=== PATIENT | male | born 1995 | race Caucasian/White ===

== ENCOUNTER 2020-09-27 10:03 | Outpatient (REF) | payer OTHER, SELFPAY ==
[2020-09-27 11:42] LABS: MANUAL DIFF FLAG NO
[2020-09-27 11:48] LABS: Basophils Percent Auto 0.5 % (0-2); Eosinophils Absolute Auto 0.1 X10*3/uL (0.0-0.4); Eosinophils Percent Auto 1.7 % (0-4); Hematocrit 43.7 % (42-52); Hemoglobin 14.8 g/dl (14.0-18.0); Lymphocytes Absolute Auto 1.6 X10*3/uL (1.2-4.9); Lymphocytes Percent Auto 39.3 % (20-40); Mean Corpuscular HGB Conc 33.9 g/dl (31.0-36.0); Mean Corpuscular Hemoglobin 31.8 pg (27.0-33.0); Mean Platelet Volume 10.2 fL (9.4-12.4); Monocytes Absolute Auto 0.4 X10*3/uL (0.1-1.2); Monocytes Percent Auto 8.5 % (2-11); Neutrophils Absolute Auto 2.1 X10*3/uL (2.0-8.3); Platelet Count 182 X10*3/uL (160-400); Red Blood Count 4.65 X10*6/uL (4.60-5.80); Red Cell Distribution Width 11.7 % (11.0-16.0); White Blood Count 4.1 X10*3/uL (4.8-10.8)
[2020-09-27 12:32] LABS: Thyroid Stimulating Hormone 0.96 uIU/mL (0.32-4.0)
[2020-09-27 12:46] LABS: Alanine Aminotransferase 9 U/L (0-40); Albumin Level 4.5 g/dL (3.5-5.0); Alkaline Phosphatase 59 U/L (39-117); Anion Gap 11 (12-20); Aspartate Amino Transferase 18 U/L (5-37); Bilirubin Total 0.9 mg/dL (0.0-1.0); Blood Urea Nitrogen 12 mg/dL (9-16); Calcium 9.4 mg/dL (8.4-10.2); Carbon Dioxide 26 mmol/L (22-29); Chloride 108 mmol/L (96-108); Cholesterol 123 mg/dL; Estimated Glomerular Filt Rate > 60; Glucose Fasting 86 mg/dL (60-99); HDL Cholesterol 37 mg/dL; LDL Cholesterol Calculated 75 mg/dl; Sodium 141 mmol/L (135-145); Triglycerides 56 mg/dL
== END 2020-09-27 10:04 | disposition home or self-care (01) ==
LOC: HO.LAB 10:03
PROVIDERS: PCP Internal Medicine; Visit Provider Internal Medicine
DX: E66.3 Overweight (principal)
CPT/HCPCS: 36415; 80053; 80061; 84443; 85025

== ENCOUNTER 2020-10-26 12:04 | Outpatient (REF) | payer OTHER, SELFPAY ==
--- NOTE | ~2020-10-26 | XR_ITS ---
EXAMINATION: XR LUMBOSACRAL SPINE CLINICAL INFORMATION: Low back pain. COMPARISON: None TECHNIQUE: Three views of the lumbosacral spine. FINDINGS: There is normal lumbar segmentation with 5 nonrib-bearing lumbar vertebrae of normal height and normal lumbar lordosis. There is no lumbar vertebral compression, disc narrowing, destructive process, or disc narrowing. The SI joints and visualized sacrum are unremarkable. XR/XR lumbar spine 2-3V IMPRESSION: Unremarkable examination.
== END 2020-10-26 12:05 | disposition home or self-care (01) ==
LOC: HO.XRAY 12:04
PROVIDERS: PCP Internal Medicine; Visit Provider Internal Medicine
DX: M54.5 Low back pain (principal)
CPT/HCPCS: 72100

== ENCOUNTER → 2020-11-16 12:50 | Outpatient (REF) | payer OTHER, SELFPAY ==
--- NOTE | 2020-11-16 13:00 | ECG_ITS ---
Test Reason : CP Blood Pressure : / mmHG Vent. Rate : 065 BPM Atrial Rate : 065 BPM P-R Int : 128 ms QRS Dur : 084 ms QT Int : 410 ms P-R-T Axes : 047 074 044 degrees QTc Int : 426 ms Normal sinus rhythm Normal ECG No previous ECGs available Referred By: Helena Linda Electronically Signed By:SONAM MORELOS
== END ==
LOC: HO.CARD 12:50
PROVIDERS: PCP Internal Medicine; Visit Provider Internal Medicine
DX: R07.9 Chest pain, unspecified (principal)
CPT/HCPCS: 93005

== ENCOUNTER 2020-11-30 14:14 | Outpatient (REF) | payer OTHER, SELFPAY ==
--- NOTE | ~2020-11-30 | MR_ITS ---
EXAMINATION: MR BRAIN WITHOUT CONTRAST CLINICAL INFORMATION: Headache. COMPARISON: None available. TECHNIQUE: Multiplanar, multisequence imaging of the brain was performed without intravenous contrast. FINDINGS: There is no acute infarction, mass, hemorrhage, or extra-axial collection. The ventricles, sulci, and basilar cisterns are normal in size and configuration. The cerebellar tonsils are minimally low-lying but do not efface the cervicomedullary CSF. Upper cervical cord is unremarkable. Midline structures are otherwise normal. The flow voids of the major intracranial arteries appear intact. The bones and extracranial soft tissues are unremarkable. Mucosal retention cyst is seen in the left maxillary sinus. No paranasal sinus fluid levels are seen. The orbital contents appear normal. MR/MR head/brain wo con IMPRESSION: No acute infarct, mass lesion, intracranial hemorrhage, or evidence of hydrocephalus. Minimally low-lying cerebellar tonsils.
== END 2020-11-30 14:15 | disposition home or self-care (01) ==
LOC: HO.MRI 14:14
PROVIDERS: PCP Internal Medicine; Visit Provider Internal Medicine
DX: R51.9 Headache, unspecified (principal)
CPT/HCPCS: 70551

== ENCOUNTER → 2020-12-18 13:45 | Outpatient (BNVA) | payer OTHER, SELFPAY | PROVIDERS: PCP Internal Medicine; Visit Provider Anesthesiology | DX: M54.5 Low back pain (principal); M46.1 Sacroiliitis, not elsewhere classified; Z88.1 Allergy status to other antibiotic agents; Z88.0 Allergy status to penicillin | CPT/HCPCS: 99202 ==

== ENCOUNTER → 2021-01-01 13:08 | Outpatient (REF) | payer OTHER, SELFPAY ==
--- NOTE | 2021-01-01 13:11 | CA_ITS ---
Transthoracic Echocardiogram Patient (Last, First, Middle): Jeremi Bedolla J Gender: Male Date of : 1995 Age: 25 Procedure Date: 01/01/2021 Procedure Type: Transthoracic Echocardiogram Location: OP Height: 172.72 cm Weight: 74.84 kg BSA: 1.88 m2 Heart Rate: bpm BP: 126 / 76 mmHg Floral Designer: GUIDO Referring MD: Helena Linda MD Symptoms: R06.00 - Dyspnea, unspecified Study Quality: Good ECG Rhythm: Sinus Conclusions: - The left ventricular systolic function is normal. The visually estimated ejection fraction is between 60-65%. - No obvious valvular pathology seen on this study. Findings Left Ventricle Normal left ventricular cavity size. There is normal left ventricular wall thickness. The left ventricular systolic function is normal. The visually estimated ejection fraction is between 60-65%. There is no evidence of regional wall motion abnormalities. Diastolic function is normal for age. Right Ventricle Normal right ventricular cavity size and systolic function. Atria Both atria are normal in size. Aortic Valve There is a normal trileaflet aortic valve. There is no aortic valve stenosis. There is no aortic valve regurgitation. Mitral Valve The mitral valve appears normal. There is trace mitral valve regurgitation. There is no mitral valve stenosis. Pulmonic Valve The pulmonic valve was not well visualized. Tricuspid Valve Normal tricuspid valve structure. There is trace tricuspid valve regurgitation. The pulmonary artery systolic pressure is normal. Great Vessels The aortic annulus, sinuses of valsalva, asc aorta, and aortic arch are normal in size. Venous The inferior vena cava is normal in size and collapses greater than 50% with inspiration. Pericardium/Pleural There is no evidence of pericardial effusion. Prior Study Comparison No prior study available for comparison. Recommendations, Care & Conclusions No obvious valvular pathology seen on this study. Measurements 2D Linear Measurements IVSd: 1.03 0.6-0.9/0.6-1.0 cm LVIDd: 5.07 3.9-5.3/4.2-5.9 cm LVIDd Index: 2.70 2.4-3.2/2.2-3.1 cm/m2 LVIDs: 3.03 2.0-3.6 cm LVPWd: 0.78 0.7-1.1 cm LA Diam: 3.50 2.7-3.8/3.0-4.0 cm LAIDs Index: 1.86 1.5-2.3 cm/m2 LV Mass: 203.30 67-162/88-224 g LV Mass Index: 108.14 43-95/49-115 g/m2 LVOT Diam: 2.00 3.0+(-)1.3 cm 2D Systolic Function EF 4C: 60.10 >55% EF 2C: 62.00 >55% EF BiP: 61.20 >55% Mitral Valve MV Pk E: 0.86 MV PK A: 0.36 MV Decel Time: 257.00 E/A: 2.40 E'Lateral: 13.30 E'Medial: 10.70 E/E' Med: 8.10 E/E' Lat: 6.50 PHT: 75.00 MVA PHT: 2.93 Decel [place]: 3.36 Aortic Valve AoV Pk Mario: 1.21 AoV Pk Grad: 6.00 LVOT LVOT Pk Mario: 1.21 LVOT Mn Mario: 0.85 LVOT VTI: 0.30 LVOT Pk Grad: 6.00 LVOT Mn Grad: 3.00 LVOT Diam: 2.00 LVOT Area: 3.14 Diastolic Function MV Pk E: 0.86 MV Pk A: 0.36 E/A: 2.40 E'Medial: 10.70 E/E' Med: 8.10 E' Laterial: 13.30 E/E' Lat: 6.50 Right Ventricle TAPSE (mm): 2.74 Tricuspid Valve RA Press: 3.00 Great Vessels Aorta Ao Asc: 3.00 2.1-3.4 cm Ao Arch: 2.30 Updated in Other Vendor System with Status of Final Luís Henriquez MD electronically signed on 01/01/2021 4:20:45 PM with status of Final
== END ==
LOC: HO.CARD 13:08
PROVIDERS: PCP Internal Medicine; Visit Provider Internal Medicine
DX: R06.00 Dyspnea, unspecified (principal)
CPT/HCPCS: 93306

== ENCOUNTER 2021-02-21 15:00 | Outpatient (RCR) | payer OTHER, SELFPAY ==
--- NOTE | 2021-01-23 15:10 | MHC.PT.EP ---
[facility] [place] Office [place] Office [place] Office [address] Rosio Agrawal [address] [phone] F: [phone] F: [phone] F: [phone] F: [phone] Physical Therapy Plan of Care Date of Evaluation: Date of Surgery: N/A Diagnosis: low back pain Assessment: pt's signs and symptoms consistent w/ poor lifting mechanics, postural habits, and muscle imbalance. pt presents to physical therapy with pain, decreased range of motion, decreased strength, impaired functional mobility, impaired postural awareness, and gait deviations. pt is a good candidate for skilled PT due to age, potential remediation of impairments, typical disease/condition progression and prognosis, comorbidities, and motivation. pt would benefit from tailored strengthening and stretching exercise program, functional training, gait training, postural re-training, neuromuscular re-education, modalities as needed for pain, equipment safety demonstration. Frequency and Duration: The patient will be seen 2x/wk for 4 wks Short Term Goals: pt will be I w/ HEP to promote self-management of condition. pt will demo proper sitting posture w/ lumbar roll to promote neutral spine for self-care activities. Group Home Goals: pt will report a statistically significant improvement in self-reported outcome measure, María, to promote return to PLOF. pt will demo proper lifting, carrying, and transfer mechanics x 5 reps w/ 40# object to promote neutral spine w/ work-related activities. Treatment Plan: Modalities to reduce pain, spasms and effusion. Manual therapy to restore motion and function. Therapeutic exercise to improve strength and flexibility. Neuromuscular re-education for posture and balance. Therapeutic activities to return to functional activities of daily living. Electronically signed by: Madiha Campo PT, DPT Please sign and return to therapist. Thank you for your referral.
--- NOTE | 2021-02-23 09:28 | MHC.PT.DC ---
[facility] [place] Office [place] Office [place] Office [address] Rosio Agrawal [address] [phone] F: [phone] F: [phone] F: [phone] F: [phone] Physical Therapy Discharge Report Diagnosis: low back pain Date of Surgery: N/A Date of Evaluation: 01/23/21 Date of Discharge: 02/23/21 Treatments to Date: 8 Cancellations to Date: 0 No Shows to Date: 0 Discharge Status: Improved Function Independent with HEP Discharge Summary: The patient has been consistently reporting lower back pain intensity and frequency as well as improved tolerance for work related activities. He is independent with his home exercise program. He is discharged to his HEP at this time. Electronically signed by: Madiha Campo PT, DPT Please sign and return to therapist. Thank you for your referral.
== END 2021-02-23 09:29 | disposition home or self-care (01) ==
LOC: HO.PT 15:00
PROVIDERS: PCP Internal Medicine; Visit Provider Anesthesiology
DX: M46.1 Sacroiliitis, not elsewhere classified (principal); M54.50 Low back pain, unspecified
CPT/HCPCS: 97110; 97161; 97530

== ENCOUNTER 2024-06-10 03:50 | Emergency (ER) | payer SELFPAY ==
[2024-06-10 03:54] VITALS: BP 150/92; PULSE 89; O2SAT 95
[2024-06-10 03:58] VITALS: BP 145/101; PULSE 75; RESP 20; TEMP 36.2; O2SAT 97; BMI 24.3
[2024-06-10 04:14] LABS: Basophils Percent Auto 0.5 % (0-2); Eosinophils Percent Auto 0.7 % (0-4); Hematocrit 47.1 % (42.0-52.0); Hemoglobin 16.8 g/dl (14.0-18.0); Imm Gran Abs Auto 0.01 X10*3/uL (0.00-0.03); Imm Gran Pct Auto 0.2 % (0.0-0.4); Lymphocytes Absolute Auto 1.6 X10*3/uL (1.2-4.9); Lymphocytes Percent Auto 27.4 % (20-40); MANUAL DIFF FLAG NO; Mean Corpuscular HGB Conc 35.7 g/dl (31.0-36.0); Mean Corpuscular Hemoglobin 32.4 pg (27.0-33.0); Mean Corpuscular Volume 90.8 fL (80.0-98.0); Mean Platelet Volume 9.2 fL (9.4-12.4); Monocytes Absolute Auto 0.4 X10*3/uL (0.1-1.2); Monocytes Percent Auto 7.3 % (2-11); Neutrophils Absolute Auto 3.7 x10*3/uL (2.0-8.3); Neutrophils Percent Auto 63.9 % (45-73); Platelet Count 236 X10*3/uL (160-400); Red Blood Count 5.19 X10*6/uL (4.60-5.80); Red Cell Distribution Width 11.5 % (11.0-16.0); White Blood Count 5.7 X10*3/uL (4.8-10.8)
[2024-06-10 04:37] LABS: Alanine Aminotransferase 20 U/L (0-40); Albumin Level 4.9 g/dL (3.5-5.0); Alkaline Phosphatase 64 U/L (39-117); Anion Gap 12 (12-20); Aspartate Amino Transferase 29 U/L (5-37); Bilirubin Total 1.3 mg/dL (0.0-1.0); Blood Urea Nitrogen 16 mg/dL (9-16); Calcium 9.8 mg/dL (8.4-10.2); Carbon Dioxide 26 mmol/L (22-29); Chloride 109 mmol/L (96-108); Creatinine Clr Calc Pharmacy 112.5; Estimated Glomerular Filt Rate > 60; Glucose Random 94 mg/dL (60-115); Potassium 4.1 mmol/L (3.3-5.1); Sodium 143 mmol/L (135-145); Total Protein 8.7 g/dL (6.5-8.0)
[2024-06-10 04:51] LABS: Influenza A PCR NEGATIVE (Negative); Influenza B PCR NEGATIVE (Negative); Resp Syncy Virus RNA Qual PCR NEGATIVE (Negative); SARS COV2 PCR INHOUSE NEGATIVE (Negative)
[2024-06-10] MEDS: Ibuprofen 600 MG TABLET PO (08:04)
[2024-06-10 14:26] VITALS: BP 131/93; PULSE 82; RESP 18; TEMP 36.6; O2SAT 98
--- NOTE | 2024-06-10 14:28 | MHC.EDTECH ---
vital signs taken and documented. Patient states he no longer has a headache,but now complains of tension pain around his heart . Compliant reported directly to triage provider Pretty
--- NOTE | 2024-06-10 14:34 | ECG_ITS ---
Test Reason : CHEST PAIN Blood Pressure : */* mmHG Vent. Rate : 64 BPM Atrial Rate : 64 BPM P-R Int : 124 ms QRS Dur : 88 ms QT Int : 376 ms P-R-T Axes : 38 66 26 degrees QTcB Int : 387 ms Normal sinus rhythm with sinus arrhythmia Normal ECG When compared with ECG of 16-Nov-2020 13:10, No significant change was found Referred By: Pretty Pedroza Electronically Signed By: SONAM MORELOS
== END 2024-06-10 19:54 | disposition left against medical advice (07) ==
PROVIDERS: Emergency Provider Emergency Medicine
DX: G43.909 Migraine, unspecified, not intractable, without status migrainosus (principal); R07.89 Other chest pain; Z03.818 Encounter for observation for suspected exposure to other biological agents ruled out; Z79.899 Other long term (current) drug therapy
CPT/HCPCS: 0241U; 80053; 85025; 93005; 99281; 99283

== ENCOUNTER → 2024-06-10 14:34 | Outpatient (BNV) | payer SELFPAY | PROVIDERS: Emergency Provider Emergency Medicine; Visit Provider Internal Medicine | DX: R00.2 Palpitations (principal) | CPT/HCPCS: 93010 ==

== ENCOUNTER 2024-06-14 13:30 | Emergency (ER) | payer SELFPAY ==
[2024-06-14 14:09] VITALS: BP 151/107; PULSE 75; RESP 16; TEMP 36.6; O2SAT 99; BMI 27.0
--- NOTE | 2024-06-14 14:14 | ECG_ITS ---
Test Reason : PALPITATIONS Blood Pressure : */* mmHG Vent. Rate : 73 BPM Atrial Rate : 73 BPM P-R Int : 112 ms QRS Dur : 82 ms QT Int : 378 ms P-R-T Axes : 35 63 16 degrees QTcB Int : 416 ms Normal sinus rhythm Normal ECG When compared with ECG of 10-Jun-2024 15:04, No significant change was found Referred By: Christine Lawson Electronically Signed By: SONAM MORELOS
--- NOTE | 2024-06-14 14:18 | ED_ITS ---
HPI - General Adult General Chief complaint: General Medical Stated complaint: rapid heartbeat Related Data Home Medications ?Medication ?Instructions ?Recorded ?Confirmed No Known Home Meds 11/26/21 11/26/21 Allergies Allergy/AdvReac Type Severity Reaction Status Date / Time amoxicillin Allergy Mild hives Verified 06/14/24 14:13 Penicillins Allergy Mild hives Verified 06/14/24 14:13 PMFSH Past Medical History Medical History Chest pain Dyspnea Headache Low back pain Lumbar pain Overweight Sacroiliitis Surgical History No pertinent past surgical history Family History Family History Mother No problems noted. Father No problems noted. Family/Other Substance use disorder Social History Social History Housing: Apartment Alcohol intake: current Alcohol intake frequency: holidays/special occasions only Alcohol type: hard liquor Patient Tobacco Use Status: Current someday Tobacco user Tobacco use type: Cigarette e-Cigarette/Vaping Use: Never Used Second Hand Smoke Exposure: No Substance Use Type: Marijuana Advance Directives: No Advance Directives Information Provided: No service: No Current occupational status: employed Current occupational exposures/hazards: No Cognitive needs: No Hearing needs: No Vision needs: No Physical Exam ED Vital Signs: Vital Signs - 24 hr 06/14/24 14:09 06/14/24 15:53 Temperature 97.8 F 98.4 F Pulse Rate 75 77 Respiratory Rate 16 16 Blood Pressure 151/107 H 138/100 H Pulse Oximetry 99 96 Oxygen Delivery Method Room Air Room Air BMI result Body Mass Index 27.0 Course Course Course Narrative: This is a Rapid Medical Examination (RME) performed by Karen Lawson PA-C in triage. Full HPI, ROS, assessment and treatment plan per primary provider in the Main ED. 29 yo male here for eval of ?anxiety attacks. reports rapid heart rate. states he was here for same 4 days ago, LWCT. + odd affect. hypertensive in triage. well appearing. Plan: labs, ekg Reevaluation(s) Reevaluation #1: Patient left the emergency department before myself or any of the other clinicians could review or explain physical exam findings, test results, need or lack there of for additional testing, treatment options, or a treatment plan. Medical Decision Making Lab Data 06/14/24 14:32 06/14/24 14:32 Labs: Lab Results 06/14/24 Range/Units 14:32 WBC 6.1 (4.8-10.8) X10*3/uL RBC 5.10 (4.60-5.80) X10*6/uL Hgb 16.4 (14.0-18.0) g/dl Hct 45.3 (42.0-52.0) % MCV 88.8 (80.0-98.0) fL MCH 32.2 (27.0-33.0) pg MCHC 36.2 H (31.0-36.0) g/dl RDW 11.3 (11.0-16.0) % Plt Count 243 (160-400) X10*3/uL MPV 9.1 L (9.4-12.4) fL Immature Gran % (Auto) 0.2 (0.0-0.4) % Neut % (Auto) 61.8 (45-73) % Lymph % (Auto) 30.5 (20-40) % [place] % (Auto) 5.9 (2-11) % Eos % (Auto) 1.1 (0-4) % Baso % (Auto) 0.5 (0-2) % Lymph # (Auto) 1.9 (1.2-4.9) X10*3/uL [place] # (Auto) 0.4 (0.1-1.2) X10*3/uL Eos # (Auto) 0.1 (0.0-0.4) X10*3/uL Baso # (Auto) 0.0 (0.0-0.2) X10*3/uL Abs Immat Gran (auto) 0.01 (0.00-0.03) X10*3/uL Absolute Neuts (auto) 3.8 (2.0-8.3) x10*3/uL Absolute Nucleated RBC 0.000 (0.0-0.012) X10*3/uL Nucleated RBC % (auto) 0.0 (0.0-0.2) /100WBC PT 12.0 (10.9-12.4) SEC INR 1.0 (0.9-1.1) Sodium 141 (135-145) mmol/L Potassium 4.1 (3.3-5.1) mmol/L Chloride 109 H (96-108) mmol/L Carbon Dioxide 25 (22-29) mmol/L Anion Gap 11 L (12-20) BUN 20 H (9-16) mg/dL Creatinine 0.82 (0.5-1.4) mg/dL Estim Creat Clear Calc 126.2 Estimated GFR > 60 Random Glucose 89 (60-115) mg/dL Calcium 9.7 (8.4-10.2) mg/dL Magnesium 2.2 (1.6-2.6) mg/dL Total Bilirubin 0.8 (0.0-1.0) mg/dL AST 28 (5-37) U/L ALT 16 (0-40) U/L Alkaline Phosphatase 66 (39-117) U/L Troponin I High Sens < 2.7 (<3.5-35.0) ng/L Total Protein 8.0 (6.5-8.0) g/dL Albumin 4.6 (3.5-5.0) g/dL Discharge Plan Discharge Clinical Impression: Heart palpitations Patient Disposition: Left W/O Completing Treatment Prescriptions: No Action No Known Home Meds Discharge Date/Time: 06/14/24 18:09
[2024-06-14 14:36] LABS: MANUAL DIFF FLAG NO
[2024-06-14 14:38] LABS: Basophils Percent Auto 0.5 % (0-2); Eosinophils Absolute Auto 0.1 X10*3/uL (0.0-0.4); Eosinophils Percent Auto 1.1 % (0-4); Hematocrit 45.3 % (42.0-52.0); Hemoglobin 16.4 g/dl (14.0-18.0); Imm Gran Abs Auto 0.01 X10*3/uL (0.00-0.03); Imm Gran Pct Auto 0.2 % (0.0-0.4); Lymphocytes Absolute Auto 1.9 X10*3/uL (1.2-4.9); Lymphocytes Percent Auto 30.5 % (20-40); Mean Corpuscular HGB Conc 36.2 g/dl (31.0-36.0); Mean Corpuscular Hemoglobin 32.2 pg (27.0-33.0); Mean Corpuscular Volume 88.8 fL (80.0-98.0); Mean Platelet Volume 9.1 fL (9.4-12.4); Monocytes Absolute Auto 0.4 X10*3/uL (0.1-1.2); Monocytes Percent Auto 5.9 % (2-11); Neutrophils Absolute Auto 3.8 x10*3/uL (2.0-8.3); Neutrophils Percent Auto 61.8 % (45-73); Platelet Count 243 X10*3/uL (160-400); Red Cell Distribution Width 11.3 % (11.0-16.0); White Blood Count 6.1 X10*3/uL (4.8-10.8)
[2024-06-14 14:52] LABS: Alanine Aminotransferase 16 U/L (0-40); Albumin Level 4.6 g/dL (3.5-5.0); Alkaline Phosphatase 66 U/L (39-117); Anion Gap 11 (12-20); Aspartate Amino Transferase 28 U/L (5-37); Bilirubin Total 0.8 mg/dL (0.0-1.0); Blood Urea Nitrogen 20 mg/dL (9-16); Calcium 9.7 mg/dL (8.4-10.2); Carbon Dioxide 25 mmol/L (22-29); Chloride 109 mmol/L (96-108); Creatinine Clr Calc Pharmacy 126.2; Estimated Glomerular Filt Rate > 60; Glucose Random 89 mg/dL (60-115); Magnesium 2.2 mg/dL (1.6-2.6); Potassium 4.1 mmol/L (3.3-5.1); Sodium 141 mmol/L (135-145)
[2024-06-14 14:59] LABS: Troponin-I High Sensitivity < 2.7 ng/L (<3.5-35.0)
[2024-06-14 15:53] VITALS: BP 138/100; PULSE 77; RESP 16; TEMP 36.9; O2SAT 96
--- OUTSIDE RECORDS SUMMARY | 2024-06-14 18:49 | XMS_ITS | Clinical Summary ---
Author Organization [facility] ity Address [address] [place] [address] Care Team Providers Care Floor Steward/Stewardess Name Role Phone Basilio Belcher MD Primary Care Provider Medical History Medical History Date Comments Unspecified disturbance of conduct DX:Unspecified disturbance o f conduct Unspecified family circumstance 02/2000,10/2000, 03/2002 DX:Unspecified family circumstance Streptococcal sore throat 05/2002 DX:Str eptococcal sore throat Scarlet fever 04/1999 DX:Scarlet fever Other sleep disturbances DX:Othe r sleep disturbances Attention deficit disorder w ith hyperactivity(314.01) DX:Attention deficit disorde r with hyperactivity(314.01) Generalized anxiety disorder DX: Generalized anxiety disorder Family History Relation Name Status Comments Father Alive Mother Alive Sister Alive - good Social History Tobacco Use Types Packs/Day Years Used Date Smoking Tobacco: Never Cigarettes Smokeless Tobacco: Never Alcohol Use Standard Drinks/Week Comments No 0 (1 standard drink = 0.6 oz pur e alcohol) Sex and Gender Information Value Date Recorded Sex Assigned at Not on file Legal Sex Male 3:26 PM EST Gender Identity Not on file Sexual Orientation Not on file Obstetrics History Plan of Treatment Health Maintenance Due Date Last Done Comments DTaP,Tdap,and Td Vaccines (1 - Tdap) 02/19/2012 Hepatitis B Vaccines (1 of 3 - 19+ 3-dose series) 02/19/2012 COVID-19 Vaccine (2023-2 5 season) 2023 Influenza Vaccine (#1) 2023 HIB Vaccines Aged Out No longer eligi ble based on patient's age to complete this topic HPV Vaccines Aged Out No longer eligi ble based on patient's age to complete this topic Hepatitis A Vaccines Aged Out No long er eligible based on patient's age to complete this topic IPV Vaccines Aged Out No longer eligi ble based on patient's age to complete this topic MMR Vaccines Aged Out No longer eligi ble based on patient's age to complete this topic Meningococcal ACWY Vaccine Aged Out N o longer eligible based on patient's age to complete this topic Meningococcal B Vacine Aged Out No lo nger eligible based on patient's age to complete this topic Pneumococcal Vaccine: Pediat rics (0 to 5 Years) and At-Risk Patients (6 to 64 Years) Aged Out No longer eligible b ased on patient's age to complete this topic RSV Immunization Patients Un chantal 20 months Aged Out No longer eligible b ased on patient's age to complete this topic Varicella Vaccines Aged Out No longer eligible based on patient's age to complete this topic Care Teams Floor Steward/Stewardess Relationship Specialty Start Date End Date Basilio Belcher MD [address] [place] [address] PCP - General 12/19/08
== END 2024-06-14 18:09 | disposition left against medical advice (07) ==
PROVIDERS: Physician Assistant Medical; Emergency Provider Emergency Medicine
DX: R00.2 Palpitations (principal); F17.210 Nicotine dependence, cigarettes, uncomplicated; Z79.899 Other long term (current) drug therapy; Z51.81 Encounter for therapeutic drug level monitoring
CPT/HCPCS: 36415; 80053; 83735; 84484; 85025; 85610; 93005; 99283

== ENCOUNTER → 2024-06-14 14:14 | Outpatient (BNV) | payer SELFPAY | PROVIDERS: Emergency Provider Emergency Medicine; Visit Provider Internal Medicine | DX: R00.2 Palpitations (principal) | CPT/HCPCS: 93010 ==

== ENCOUNTER 2024-06-22 18:47 | Inpatient (IN) | payer OTHER, SELFPAY ==
--- NOTE | ~2024-06-22 | XR_ITS ---
CLINICAL HISTORY: CP. SOB 2 view chest x-ray Comparison: None Findings: No consolidation or effusion. Normal size heart. No acute fracture. IMPRESSION: 1. No acute findings. This document has been electronically signed by: Bogdan García MD on 06/22/2024 20:13:05
[2024-06-22 19:03] VITALS: BP 138/100; PULSE 104; RESP 18; TEMP 36.8; O2SAT 98; BMI 26.3
--- NOTE | 2024-06-22 19:03 | ED.URI ---
HPI - URI/Sore Throat General Chief Complaint: Upper Respiratory Symptoms Stated Complaint: Walking Pneumonia symtpoms Time Seen by Provider: 06/22/24 22:02 Source: patient Mode of arrival: ambulatory Limitations: no limitations History of Present Illness ED Provider: Samantha Aguilar NP HPI Narrative: Patient is a 29-year-old male who presents emergency department for evaluation. He reports over the past 2 weeks he has been feeling unwell, endorsing intermittent pain throughout his chest it was felt during episodes of cough. He states overall the cough is getting better but still has been present. When asked he Denies fevers, chills, headache, dizziness, neck pain, neck stiffness, shortness of breath, difficulty breathing, sore throat, nausea, vomiting, abdominal pain, numbness or tingling of the extremities, genitourinary symptoms. While patient was in our waiting room, he had locked himself in the waiting room bathroom, citing that he did not want to become more sick while in the waiting room nor did he want to make anybody else sick, but also mentioning 78 for brain surgery. He states to myself ?I know I need help for my mental health?. When asked if he can elaborate further he states ?I know I am not taking care of it very well?. When asked whether he has been hospitalized in the past he admits to 1 hospitalization after a ?brain injury? but does not provide further details. He denies SI/HI. He denies hallucinations. Denies recreational drug or alcohol usage. His demeanor is a bit bizarre with me, reporting to myself that when he moves on the stretcher for physical examination he needs to move in particular ways to assure that his blood is flowing everywhere as it should be, and that he must keep his arms crossed over his chest to ensure warmth to the heart Related Data Home Medications ?Medication ?Instructions ?Recorded ?Confirmed naproxen sodium 220 mg tablet 220 mg PO Q8H PRN Pain 06/23/24 06/23/24 Allergies Allergy/AdvReac Type Severity Reaction Status Date / Time amoxicillin Allergy Mild hives Verified 06/22/24 19:05 Penicillins Allergy Mild hives Verified 06/22/24 19:05 Review of Systems Review of Systems: Yes all other systems are reviewed and are negative PMFSH Past Medical History Attestation statement: The following information was validated with the patient. Source: old records reviewed Medical History Chest pain Dyspnea Headache Low back pain Lumbar pain Overweight Sacroiliitis Surgical History No pertinent past surgical history Family History Family History Mother No problems noted. Father No problems noted. Family/Other Substance use disorder Social History Social History Housing: Apartment Unable to assess alcohol history related to: Unknown Alcohol intake: current Alcohol intake frequency: holidays/special occasions only Alcohol type: hard liquor Patient Tobacco Use Status: Current someday Tobacco user Tobacco use type: Cigarette Smoked in Last 30 Days: No e-Cigarette/Vaping Use: Never Used Second Hand Smoke Exposure: No Use of substances other than those prescribed or required for medical reasons: Unknown Substance Use Type: Marijuana Advance Directives: No Advance Directives Information Provided: No service: No Current occupational status: employed Current occupational exposures/hazards: No Cognitive needs: No Hearing needs: No Vision needs: No Physical Exam Vital Signs: Vital Signs: Last Vital Signs Temp 98.1 F 06/24/24 03:16 Pulse 77 06/24/24 03:16 Resp 16 06/24/24 03:16 BP 132/92 H 06/24/24 03:16 Pulse Ox 97 06/24/24 03:16 O2 Del Method Room Air 06/24/24 03:16 BMI result Body Mass Index 26.3 Appearance: Alert.?Oriented to person, place and time. No acute distress.?Normal affect. Eyes: Pupils equal, round and reactive to light.? ENT: TM normal bilaterally. Pharynx normal.?? Neck: Normal inspection.? Neck supple.??No cervical adenopathy CVS: Heart sounds normal. Normal heart rate and rhythm.? Pulses normal.?? Respiratory: No respiratory distress.? Lung sounds clear to auscultation bilaterally?? Abdomen: Soft and non-tender. Normoactive bowel sounds. Skin: Skin warm and dry.? Normal skin color.? ? Extremities: No lower extremity edema.? Neuro: Moves all extremities spontaneously. Sensation intact bilaterally. No motor deficits. Ambulates with normal steady gait. Course Course Course Narrative: This is an RME: Additional HPI, ROS, PE not included below will be deferred to primary provider. RME assessment and note performed by: Gilma Feldman PA-C This is a 29-year-old male, past medical history of sacroiliitis, who presents emergency department with complaints of cold sxs x 1-2 weeks ago. Plan: Labs, swabs, further ER eval needed. Reevaluation(s) Reevaluation #1: Patient is stable at this time and we are waiting for the crisis evaluation. No event reported overnight Time: 06:59 Medical Decision Making Medical Decision Making MDM Narrative: Patient is a 29-year-old male presenting for evaluation of upper respiratory symptoms as per HPI. Workup obtained prior to my assumption of care revealing COVID-19/RSV testing negative. Influenza a testing positive. CXR without consolidation or infiltrate to suggest pneumonia. He is not having active chest pain, chest pain has been sporadic and intermittent and only felt during episodes of cough. Well-appearing, nontoxic, afebrile, no tachypnea/hypoxia. Speaking clear full sentences, ambulatory with steady gait. Given duration of illness would not initiate Tamiflu at this time. As per HPI, he is acting bizarre, locked himself in the waiting room bathroom, citing requiring brain surgery, told nursing staff when brought back to the main ED that he wanted to ensure that his family was contacted prior to his surgery, and that he is placed on all appropriate monitors. He does cite that he requires help for his ?mental health? but does not provide much further detail in regards to such, denies SI/HI, hallucinations, recreational drug or alcohol usage when asked. Spoke with nursing staff, will transfer patient to be [facility] and have care team evaluation ensue in addition will add toxicology testing. Differential Diagnosis Differential Diagnoses: The differential diagnosis associated with the presentation includes ( See narrative above) Admission/Observation Consideration of admission/observation: Escalation of care including admission/observation considered ( see narrative above) Placing physician observation at 22:48 on 06/22/2024 as per narrative above. Pending care team evaluation safe disposition planning. Consult Healthcare Provider Management of the patient was discussed with: Behavioral Health Provider Lab Data MDM Lab Attestation statement: I reviewed the patient's lab results. ( see narrative above) 06/22/24 19:22 06/22/24 19:22 Labs: Lab Results 06/22/24 06/23/24 06/23/24 Range/Units 19:22 01:04 09:22 WBC 6.6 (4.8-10.8) X10*3/uL RBC 4.89 (4.60-5.80) X10*6/uL Hgb 15.8 (14.0-18.0) g/dl Hct 43.4 (42.0-52.0) % MCV 88.8 (80.0-98.0) fL MCH 32.3 (27.0-33.0) pg MCHC 36.4 H (31.0-36.0) g/dl RDW 11.3 (11.0-16.0) % Plt Count 225 (160-400) X10*3/uL MPV 9.2 L (9.4-12.4) fL Immature Gran % (Auto) 0.2 (0.0-0.4) % Neut % (Auto) 69.7 (45-73) % Lymph % (Auto) 24.2 (20-40) % Anderson % (Auto) 5.5 (2-11) % Eos % (Auto) 0.2 (0-4) % Baso % (Auto) 0.2 (0-2) % Lymph # (Auto) 1.6 (1.2-4.9) X10*3/uL Anderson # (Auto) 0.4 (0.1-1.2) X10*3/uL Eos # (Auto) 0.0 (0.0-0.4) X10*3/uL Baso # (Auto) 0.0 (0.0-0.2) X10*3/uL Abs Immat Gran (auto) 0.01 (0.00-0.03) X10*3/uL Absolute Neuts (auto) 4.6 (2.0-8.3) x10*3/uL Absolute Nucleated RBC 0.000 (0.0-0.012) X10*3/uL Nucleated RBC % (auto) 0.0 (0.0-0.2) /100WBC Sodium 141 (135-145) mmol/L Potassium 3.6 (3.3-5.1) mmol/L Chloride 107 (96-108) mmol/L Carbon Dioxide 23 (22-29) mmol/L Anion Gap 15 (12-20) BUN 11 (9-16) mg/dL Creatinine 0.83 (0.5-1.4) mg/dL Estim Creat Clear Calc 124.7 Estimated GFR > 60 POC Glucose (60-115) mg/dL Random Glucose 95 (60-115) mg/dL Calcium 9.1 D (8.4-10.2) mg/dL Magnesium 2.0 (1.6-2.6) mg/dL Total Bilirubin 1.0 (0.0-1.0) mg/dL Direct Bilirubin 0.3 (0.0-0.5) mg/dL AST 35 (5-37) U/L ALT 22 (0-40) U/L Alkaline Phosphatase 58 (39-117) U/L Troponin I High Sens < 2.7 (<3.5-35.0) ng/L Total Protein 8.0 (6.5-8.0) g/dL Albumin 4.6 (3.5-5.0) g/dL Salicylates < 5.0 L (15-30) mg/dL Urine Opiates Screen Not Detected (Not Detect) Ur Buprenorphine Scrn Not Detected (Not Detect) ng/mL Ur Oxycodone Screen Not Detected (Not Detect) ng/mL Urine Methadone Screen Not Detected (Not Detect) ng/mL Urine Fentanyl Screen Not Detected (Not Detect) Acetaminophen < 3 (<30) mcg/mL Ur Barbiturates Screen Not Detected (Not Detect) Ur Phencyclidine Scrn Not Detected (Not Detect) Ur Amphetamines Screen Not Detected (Not Detect) U Benzodiazepines Scrn Not Detected (Not Detect) Urine Cocaine Screen Not Detected (Not Detect) U Marijuana (THC) Screen POSITIVE H (Not Detect) Ethyl Alcohol < 10 mg/dL Influenza Type A (PCR) POSITIVE A (Negative) Influenza Type B (PCR) NEGATIVE (Negative) RSV RNA Qual (PCR) NEGATIVE (Negative) SARS-CoV-2 RNA (RT-PCR) NEGATIVE (Negative) 06/24/24 Range/Units 02:43 WBC (4.8-10.8) X10*3/uL RBC (4.60-5.80) X10*6/uL Hgb (14.0-18.0) g/dl Hct (42.0-52.0) % MCV (80.0-98.0) fL MCH (27.0-33.0) pg MCHC (31.0-36.0) g/dl RDW (11.0-16.0) % Plt Count (160-400) X10*3/uL MPV (9.4-12.4) fL Immature Gran % (Auto) (0.0-0.4) % Neut % (Auto) (45-73) % Lymph % (Auto) (20-40) % Anderson % (Auto) (2-11) % Eos % (Auto) (0-4) % Baso % (Auto) (0-2) % Lymph # (Auto) (1.2-4.9) X10*3/uL Anderson # (Auto) (0.1-1.2) X10*3/uL Eos # (Auto) (0.0-0.4) X10*3/uL Baso # (Auto) (0.0-0.2) X10*3/uL Abs Immat Gran (auto) (0.00-0.03) X10*3/uL Absolute Neuts (auto) (2.0-8.3) x10*3/uL Absolute Nucleated RBC (0.0-0.012) X10*3/uL Nucleated RBC % (auto) (0.0-0.2) /100WBC Sodium (135-145) mmol/L Potassium (3.3-5.1) mmol/L Chloride (96-108) mmol/L Carbon Dioxide (22-29) mmol/L Anion Gap (12-20) BUN (9-16) mg/dL Creatinine (0.5-1.4) mg/dL Estim Creat Clear Calc Estimated GFR POC Glucose 112 (60-115) mg/dL Random Glucose (60-115) mg/dL Calcium (8.4-10.2) mg/dL Magnesium (1.6-2.6) mg/dL Total Bilirubin (0.0-1.0) mg/dL Direct Bilirubin (0.0-0.5) mg/dL AST (5-37) U/L ALT (0-40) U/L Alkaline Phosphatase (39-117) U/L Troponin I High Sens (<3.5-35.0) ng/L Total Protein (6.5-8.0) g/dL Albumin (3.5-5.0) g/dL Salicylates (15-30) mg/dL Urine Opiates Screen (Not Detect) Ur Buprenorphine Scrn (Not Detect) ng/mL Ur Oxycodone Screen (Not Detect) ng/mL Urine Methadone Screen (Not Detect) ng/mL Urine Fentanyl Screen (Not Detect) Acetaminophen (<30) mcg/mL Ur Barbiturates Screen (Not Detect) Ur Phencyclidine Scrn (Not Detect) Ur Amphetamines Screen (Not Detect) U Benzodiazepines Scrn (Not Detect) Urine Cocaine Screen (Not Detect) U Marijuana (THC) Screen (Not Detect) Ethyl Alcohol mg/dL Influenza Type A (PCR) (Negative) Influenza Type B (PCR) (Negative) RSV RNA Qual (PCR) (Negative) SARS-CoV-2 RNA (RT-PCR) (Negative) Independent Interpretation I performed an independent interpretation of an: EKG (EKG revealing normal sinus rhythm with ventricular rate of 100, QTC 451, no ST elevation.) and Plain X-Ray (See narrative above) Radiology Impression Discussion of test interpretation with radiology: I have reviewed the radiologist's reading. Radiologist Impression: 2 view chest x-ray Comparison: None Findings: No consolidation or effusion. Normal size heart. No acute fracture. IMPRESSION: 1. No acute findings. External Record Review External record reviewed: Outpatient record Prescription Management I considered prescription management with: Pain Medication ( acetaminophen/ibuprofen) Discharge Plan Discharge Clinical Impression: Influenza Patient Disposition: Still a Patient Instructions: Influenza (ED) Prescriptions: No Action naproxen sodium 220 mg Tablet 220 mg PO Q8H PRN (Reason: Pain) Print Language: Maltese
--- NOTE | 2024-06-22 19:06 | ECG_ITS ---
Test Reason : cp Blood Pressure : */* mmHG Vent. Rate : 100 BPM Atrial Rate : 100 BPM P-R Int : 126 ms QRS Dur : 80 ms QT Int : 350 ms P-R-T Axes : 64 61 28 degrees QTcB Int : 451 ms Normal sinus rhythm Normal ECG When compared with ECG of 14-Jun-2024 14:23, No significant change was found Referred By: Gilma Feldman Electronically Signed By: SUGAR CONRAD MD
[2024-06-22 19:27] LABS: MANUAL DIFF FLAG NO
[2024-06-22 19:32] LABS: Basophils Percent Auto 0.2 % (0-2); Eosinophils Percent Auto 0.2 % (0-4); Hematocrit 43.4 % (42.0-52.0); Hemoglobin 15.8 g/dl (14.0-18.0); Imm Gran Abs Auto 0.01 X10*3/uL (0.00-0.03); Imm Gran Pct Auto 0.2 % (0.0-0.4); Lymphocytes Absolute Auto 1.6 X10*3/uL (1.2-4.9); Lymphocytes Percent Auto 24.2 % (20-40); Mean Corpuscular HGB Conc 36.4 g/dl (31.0-36.0); Mean Corpuscular Hemoglobin 32.3 pg (27.0-33.0); Mean Corpuscular Volume 88.8 fL (80.0-98.0); Mean Platelet Volume 9.2 fL (9.4-12.4); Monocytes Absolute Auto 0.4 X10*3/uL (0.1-1.2); Monocytes Percent Auto 5.5 % (2-11); Neutrophils Absolute Auto 4.6 x10*3/uL (2.0-8.3); Neutrophils Percent Auto 69.7 % (45-73); Platelet Count 225 X10*3/uL (160-400); Red Blood Count 4.89 X10*6/uL (4.60-5.80); Red Cell Distribution Width 11.3 % (11.0-16.0); White Blood Count 6.6 X10*3/uL (4.8-10.8)
[2024-06-22 19:43] LABS: Alanine Aminotransferase 22 U/L (0-40); Albumin Level 4.6 g/dL (3.5-5.0); Alkaline Phosphatase 58 U/L (39-117); Anion Gap 15 (12-20); Aspartate Amino Transferase 35 U/L (5-37); Bilirubin Direct 0.3 mg/dL (0.0-0.5); Blood Urea Nitrogen 11 mg/dL (9-16); Calcium 9.1 mg/dL (8.4-10.2); Carbon Dioxide 23 mmol/L (22-29); Chloride 107 mmol/L (96-108); Creatinine Clr Calc Pharmacy 124.7; Estimated Glomerular Filt Rate > 60; Glucose Random 95 mg/dL (60-115); Potassium 3.6 mmol/L (3.3-5.1); Sodium 141 mmol/L (135-145)
[2024-06-22 19:49] LABS: Troponin-I High Sensitivity < 2.7 ng/L (<3.5-35.0)
[2024-06-22 20:05] LABS: Influenza A PCR POSITIVE (Negative); Influenza B PCR NEGATIVE (Negative); Resp Syncy Virus RNA Qual PCR NEGATIVE (Negative); SARS COV2 PCR INHOUSE NEGATIVE (Negative)
[2024-06-22 23:30] LABS: Ethanol < 10 mg/dL
[2024-06-23 01:20] LABS: Amphetamine Screen Urine Not Detected (Not Detect); Barbiturates, Urine Not Detected (Not Detect); Benzodiazepines Screen Urine Not Detected (Not Detect); Buprenorphine Scr Not Detected (Not Detect); Cannabinoid Screen Urine POSITIVE (Not Detect); Cocaine Screen Urine Not Detected (Not Detect); Fentanyl, urine Not Detected (Not Detect); Methadone Screen, Urine Not Detected (Not Detect); Opiate Screen Urine Not Detected (Not Detect); Oxycodone Screen Urine Not Detected (Not Detect); Phencyclidine Screen Urine Not Detected (Not Detect)
[2024-06-23 01:29] VITALS: BP 142/84; PULSE 105; RESP 17; TEMP 37.2; O2SAT 99
[2024-06-23 09:45] LABS: Acetaminophen LAB < 3 mcg/mL (<30); Salicylate < 5.0 mg/dL (15-30)
--- NOTE | 2024-06-23 11:40 | PHA.MEDREC ---
Pharmacy Consult ? Medication Reconciliation Pharmacy has completed the medication reconciliation. Nurse Pretty spoke with patient to confirm. Says he only takes naproxen OTC and a migraine medication he cannot remember the name of.
[2024-06-23 12:41] VITALS: BP 142/97; PULSE 95; RESP 16; TEMP 37.7; O2SAT 97
--- NOTE | 2024-06-23 19:11 | PC.NURSE ---
patient appears to remain at rest presently respirations are even and unlabored patient appears in no distress
--- NOTE | 2024-06-23 23:35 | PC.NURSE ---
took over care from RN Argelia, pt sleeping at this time.
--- NOTE | 2024-06-23 23:50 | PC.NURSE ---
Took over care from RN Nathan pt is sleeping
[2024-06-24 02:52] LABS: Glucose, Whole Blood 112 mg/dL (60-115)
[2024-06-24 03:16] VITALS: BP 132/92; PULSE 77; RESP 16; TEMP 36.7; O2SAT 97
--- NOTE | 2024-06-24 08:12 | MHC.CARE ---
Patient remains agreeable for IPLOC. He also continues to believe he has cardiac or brain issues requiring surgery and today mentions a belief he has cancer. He agrees to focus on managing distress and resting.
[2024-06-24 14:30] VITALS: BP 152/94; PULSE 80; RESP 18; TEMP 36.9; O2SAT 97
[2024-06-24] MEDS: hydrOXYzine HCL 25 MG TABLET PO ×2 (14:45→22:42)
--- NOTE | 2024-06-24 18:03 | PC.ADMIT ---
Pt arrived on the unit at 1403 from [facility] where pt self presented. Pt presented initially thinking he had various medical issues. While in the ED pt locked himself in the bathroom, not wanting to get sicker and not wanting to make others sick. Pt's mother was contacted and it was determined he had a mental health history. Pt has no current PCP or psych prescriber. Was doing therapy online with [facility] but hasnt spoken to therapist in several months. Pt is currently flu A positive, no other medical complaints. Pt is perseverative on the idea that black mold has infected his heart and he will need to be put under for surgery, though he has been told several times there is no indication of this. Pt is open to the experience and aware that he needs help with his mental health. Pt has been calm and cooperative with admission. Not a cigarette smoker for over 30 days, and declining flu shot at this time.
[2024-06-24 20:00] VITALS: BP 137/94; TEMP 36.8; O2SAT 98
[2024-06-25 08:00] VITALS: BP 136/95; PULSE 70; RESP 16; TEMP 36.6; O2SAT 99
--- NOTE | 2024-06-25 08:35 | HO.PSYADMNOT ---
HPI Date of Service: 06/25/24 Chief Complaint: depression Sources of Information: patient interviewed, chart reviewed and crisis/core team assessment reviewed HPI Subjective Notes: Harman Warning and Conditional Voluntary Narrative: Pt is a 29 yo male with hx of excessive worry, depression, PTSD who self presents for worsening anxious symptoms. Patient reports excessive worry since childhood. He says currently came to the hospital because i was sick and in an emotional housing crisis... It destabilized my mind... I was anxious, tired, thinking hard on myself, paranoia in the sense of i don't know how sick i am, wondering if people annoyed with me... or are people not telling me how sick i am... Patient reports that he has been living for the past 2 years in a hotel room with his friend Robby. Last month he started to notice he was more depressed, stopped going to work, irritable, sleeping a lot, low energy and not feeling comfortable around other people including his roommate. Excessively worried about his health, He got upset with his roommate when he smoked in the hotel; they had an angry exchange of words and patient called the police saying he was not sure if this would result in a fight between the 2; patient himself ended up leaving and went to his mother's house but a stepfather did not want him there. In the ED, patient locked himself in a bathroom saying he did not want to get more. sick or get other sick.. And said he worried that his heart had black mold on it and that maybe he need to undergo surgery... Patient now expresses worries that doctors are not telling him how sick he really is however he somewhat responds to reality testing and is open to agrees that he is over thinking situations and misinterpreting them and that these worries are excessive. Patient has never tried medication for his anxiety but is open to it now. Patient denies history of drug or alcohol abuse; used to smoke cannabis daily but has not done so for the past several weeks; denies any history of manic type episodes or behaviors. Denies AVH; endorses history of trauma Past Psychiatric History: No history of psychiatric hospitalizations No history of medication trials other than Ritalin as a child No history of SA Reports there was a history of his stepfather having a restraining order on him Medical Evaluation Reviewed: Yes PMFSH Medical History (Updated 06/25/24 @ 17:49 by Shiva Roca MD) MDD (major depressive disorder), recurrent severe, without psychosis PTSD (post-traumatic stress disorder) SHAKIRA (generalized anxiety disorder) Sacroiliitis Low back pain Headache Chest pain Dyspnea Lumbar pain Overweight Surgical History No pertinent past surgical history Family History: Mother: PTSD Social History: Has been living in a hotel with his friend Robby for the past 2 years Has been working at [employer] Substance History: cannabis daily but stopped weeks ago; alcohol seldom and not excessive Trauma History: Endorses history of trauma but does not discuss Diagnostics Vital Signs (24Hr): Vital Signs - 24 hr 06/24/24 14:30 06/24/24 20:00 Temperature 98.5 F 98.2 F Pulse Rate 80 Respiratory Rate 18 Blood Pressure 152/94 H 137/94 H Pulse Oximetry 97 98 Oxygen Delivery Method Room Air Room Air BMI result Body Mass Index 26.3 Labs 06/22/24 19:22 06/22/24 19:22 Labs: Laboratory Results - last 48 hr 06/23/24 06/24/24 09:22 02:43 POC Glucose 112 Salicylates < 5.0 L Acetaminophen < 3 Meds/Allergies Meds Home Medications ?Medication ?Instructions ?Recorded ?Confirmed ?Type naproxen sodium 220 mg tablet 220 mg PO Q8H PRN Pain 06/23/24 06/23/24 History Allergies Allergies Allergy/AdvReac Type Severity Reaction Status Date / Time amoxicillin Allergy Mild hives Verified 06/22/24 19:05 Penicillins Allergy Mild hives Verified 06/22/24 19:05 Mental Status Exam Mental Status Exam Narrative: Pt is alert and oriented; behavior is cooperative, friendly, formal and polite; calm; patient is not in distress; dressed in casual attire with unkempt hair but adequate hygiene; mood is described as anxious.... Depressed and affect congruent; eye contact appropriate; Speech is verbose but not pressured; normal rate, volume and prosody; no psychomotor agitation/retardation present; thought process is organized and goal directed but distracted; Thought content is on various worries; some delusional ideations about being physically ill however does respond reality testing; denies any SI/HI. Denies AVH; There is no evidence of perceptual disturbance. Patients insight and judgment impaired Assessment & Plan Assessment & Plan (1) SHAKIRA (generalized anxiety disorder): Status: Acute Code(s): F41.1 - Generalized anxiety disorder (2) MDD (major depressive disorder), recurrent severe, without psychosis: Status: Acute Code(s): F33.2 - Major depressive disorder, recurrent severe without psychotic features (3) PTSD (post-traumatic stress disorder): Status: Acute Code(s): F43.10 - Post-traumatic stress disorder, unspecified Plan Pt is a 29 yo male with hx of excessive worry, depression, PTSD who self presents for worsening anxious symptoms. Patient reports excessive worry since childhood. He says currently came to the hospital because i was sick and in an emotional housing crisis... It destabilized my mind... I was anxious, tired, thinking hard on myself, paranoia in the sense of i don't know how sick i am, wondering if people annoyed with me... or are people not telling me how sick i am... Patient reports that he has been living for the past 2 years in a hotel room with his friend Robby. Last month he started to notice he was more depressed, stopped going to work, irritable, sleeping a lot, low energy and not feeling comfortable around other people including his roommate. Excessively worried about his health, He got upset with his roommate when he smoked in the hotel; they had an angry exchange of words and patient called the police saying he was not sure if this would result in a fight between the 2; patient himself ended up leaving and went to his mother's house but a stepfather did not want him there. In the ED, patient locked himself in a bathroom saying he did not want to get more. sick or get other sick.. And said he worried that his heart had black mold on it and that maybe he need to undergo surgery... Patient now expresses worries that doctors are not telling him how sick he really is however he somewhat responds to reality testing and is open to agrees that he is over thinking situations and misinterpreting them and that these worries are excessive. Patient has never tried medication for his anxiety but is open to it now. Patient denies history of drug or alcohol abuse; used to smoke cannabis daily but has not done so for the past several weeks; denies any history of manic type episodes or behaviors. Denies AVH; endorses history of trauma Formulation/clinical reasoning: Will diagnosed patient with SHAKIRA; also MDD and PTSD. May have ADHD as well. Discussed treatment and risks/side effects of Effexor and patient agrees to try. Plan: CV Q 15 minute checks Start Effexor ER 37.5 mg daily; will titrate slowly since patient seems prone to worries about medications Clonidine p.r.n. Will gather collateral Patient educated on: diagnosis, medication risk/benefits and therapeutic strategies Informed Consent: understands Reason for continued inpatient stay Substantial Risk for: rapid decompensation Statement Statement: I have reviewed the history and physical and performed a pertinent examination on my patient. No changes have occurred unless specified. If the History and Physical was not performed prior to admission, the Hospitalist's service will be consulted for completing the admission physical. Time Spent With Patient Time: Total time managing care of this patient today ____ minutes.
[2024-06-25 08:59] LABS: Estimated Average Glucose 108 mg/dL; Hemoglobin A1C 141.3317 umol/L; Hemoglobin A1c % 5.4 % (<6.0); Total Hemoglobin (HGBA1C) 3961.0759 umol/L
[2024-06-25 09:26] LABS: Cholesterol 118 mg/dL (<200); HDL Cholesterol 41 mg/dL (>40); LDL Cholesterol Calculated 66 mg/dL (<100); Magnesium 2.1 mg/dL (1.6-2.6); Triglycerides 59 mg/dL (<150)
[2024-06-25 09:28] LABS: Free T4 (Free Thyroxine) 1.03 ng/dL (0.71-1.85)
[2024-06-25 09:46] LABS: Folate 11.9 ng/mL (> or = 4.0); Vitamin B12 606 pg/mL (200-900)
[2024-06-25] MEDS: Venlafaxine HCl ER 37.5 MG CAP.ER.24H PO (18:24)
[2024-06-25 20:00] VITALS: BP 104/88; PULSE 85; RESP 16; TEMP 37.3; O2SAT 97
[2024-06-26 08:00] VITALS: BP 139/90; PULSE 91; RESP 18; TEMP 36.9; O2SAT 97
--- NOTE | 2024-06-26 10:56 | HO.PSYCHPN ---
Subjective Subjective Date of Service: 06/26/24 Reason For Visit: depression Subjective Notes: Conditional Voluntary Interim History: patient was seen and discussed in rounds today. Records and plans were reviewed. He is adjusting and settling in adequately. Eating and sleeping adequately. Questions about hydroxyzine discussed. No SI. No changes were made today Review of Systems Review of Systems Yes all other systems are reviewed and are negative Mental Status Exam Mental Status Exam Narrative: in today's visit he is alert, oriented and pleasant. Normal speech. Good eye contact. Appropriate affect. Moderate dysphoria present. No signs of psychosis. No SI/HI. Cognitively is intact. Judgment is intact. Moves all limbs. No gait abnormalities. Diagnostics Vital Signs (24Hr): Vital Signs - 24 hr 06/25/24 20:00 06/26/24 08:00 Temperature 99.1 F 98.5 F Pulse Rate 85 91 Respiratory Rate 16 18 Blood Pressure 104/88 139/90 H Pulse Oximetry 97 97 Oxygen Delivery Method Room Air Room Air BMI result Body Mass Index 26.3 Labs 06/22/24 19:22 06/22/24 19:22 Labs: Laboratory Results - last 48 hr 06/25/24 07:45 Estimat Average Glucose 108 Hemoglobin A1c % 5.4 Magnesium 2.1 Triglycerides 59 Cholesterol 118 LDL Cholesterol, Calc 66 HDL Cholesterol 41 Vitamin B12 606 Folate 11.9 TSH 1.70 Free T4 1.03 Medications Medications Current Medications Acetaminophen (Acetaminophen 325 Mg Tablet) 650 mg PO Q6H PRN PRN Reason: Headache/Pain, Scale 1-10 Al Hydroxide/Mg Hydroxide (Magnesium Hydrox/Alum Hydrox 30 Ml Oral.Susp) 30 ml PO Q6H PRN PRN Reason: Heartburn/Nausea Clonidine HCl (Clonidine Hcl 0.1 Mg Tablet) 0.1 mg PO Q4H PRN; Protocol PRN Reason: moderate anxiety Hydroxyzine HCl (Hydroxyzine Hcl 25 Mg Tablet) 25 mg PO Q6H PRN PRN Reason: mild anxiety Last Admin: 06/24/24 22:42 Dose: 25 mg Magnesium Hydroxide (Milk Of Magnesia 30 Ml Oral.Susp) 30 ml PO DAILY PRN PRN Reason: Constipation Naproxen (Naproxen 250 Mg Tablet) 220 mg PO Q8H PRN PRN Reason: Pain, Mild (Pain Scale 1-3) Nicotine Polacrilex (Nicotine Polacrilex 2 Mg Gum) 4 mg BUCCAL Q2H PRN PRN Reason: Nicotine Cravings Olanzapine (Olanzapine 5 Mg Tablet) 5 mg PO Q4H PRN PRN Reason: agitation Trazodone HCl (Trazodone Hcl 50 Mg Tablet) 50 mg PO BEDTIME MRX1 PRN PRN Reason: Insomnia Venlafaxine HCl (Venlafaxine Hcl Er 37.5 Mg Cap.Er.24h) 37.5 mg PO DAILY DIANN Last Admin: 06/26/24 09:16 Dose: Not Given Allergies Allergies Allergy/AdvReac Type Severity Reaction Status Date / Time amoxicillin Allergy Mild hives Verified 06/22/24 19:05 Penicillins Allergy Mild hives Verified 06/22/24 19:05 Assessment & Plan Assessment & Plan (1) SHAKIRA (generalized anxiety disorder): Status: Acute Code(s): F41.1 - Generalized anxiety disorder (2) MDD (major depressive disorder), recurrent severe, without psychosis: Status: Acute Code(s): F33.2 - Major depressive disorder, recurrent severe without psychotic features (3) PTSD (post-traumatic stress disorder): Status: Acute Code(s): F43.10 - Post-traumatic stress disorder, unspecified Plan Pt is a 29 yo male with hx of excessive worry, depression, PTSD who self presents for worsening anxious symptoms. Patient reports excessive worry since childhood. He says currently came to the hospital because i was sick and in an emotional housing crisis... It destabilized my mind... I was anxious, tired, thinking hard on myself, paranoia in the sense of i don't know how sick i am, wondering if people annoyed with me... or are people not telling me how sick i am... Patient reports that he has been living for the past 2 years in a hotel room with his friend Robby. Last month he started to notice he was more depressed, stopped going to work, irritable, sleeping a lot, low energy and not feeling comfortable around other people including his roommate. Excessively worried about his health, He got upset with his roommate when he smoked in the hotel; they had an angry exchange of words and patient called the police saying he was not sure if this would result in a fight between the 2; patient himself ended up leaving and went to his mother's house but a stepfather did not want him there. In the ED, patient locked himself in a bathroom saying he did not want to get more. sick or get other sick.. And said he worried that his heart had black mold on it and that maybe he need to undergo surgery... Patient now expresses worries that doctors are not telling him how sick he really is however he somewhat responds to reality testing and is open to agrees that he is over thinking situations and misinterpreting them and that these worries are excessive. Patient has never tried medication for his anxiety but is open to it now. Patient denies history of drug or alcohol abuse; used to smoke cannabis daily but has not done so for the past several weeks; denies any history of manic type episodes or behaviors. Denies AVH; endorses history of trauma Formulation/clinical reasoning: Will diagnosed patient with SHAKIRA; also MDD and PTSD. May have ADHD as well. Discussed treatment and risks/side effects of Effexor and patient agrees to try. 06/26/24: Continue current plans and regimen Plan: CV Q 15 minute checks Start Effexor ER 37.5 mg daily; will titrate slowly since patient seems prone to worries about medications Clonidine p.r.n. Will gather collateral Reason for continued inpatient stay Substantial Risk for: med/psych decompensation Time Spent With Patient Time: Total time managing care of this patient today ____ minutes.
[2024-06-26 19:45] VITALS: BP 175/90; PULSE 89; RESP 16; TEMP 36.4; O2SAT 93
[2024-06-26 20:10] VITALS: BP 175/80
[2024-06-26] MEDS: cloNIDine HCL 0.1 MG TABLET PO (20:10)
[2024-06-27 08:00] VITALS: BP 135/77; PULSE 100; RESP 20; TEMP 36.7; O2SAT 97
[2024-06-27] MEDS: Venlafaxine HCl ER 37.5 MG CAP.ER.24H PO (09:13)
--- NOTE | 2024-06-27 09:13 | HO.PSYCHPN ---
Subjective Subjective Date of Service: 06/27/24 Reason For Visit: depression Subjective Notes: Conditional Voluntary Interim History: patient was seen and discussed in rounds today. Records and plans were reviewed. He has been mostly isolative but does have some contact with others. He is having some upper respiratory symptoms. Some comfort medications were ordered. Eating and sleeping adequately. No SI. No other changes were made Review of Systems Review of Systems Early upper respiratory symptoms Yes all other systems are reviewed and are negative Mental Status Exam Mental Status Exam Narrative: in today's visit he is alert, oriented and pleasant. Normal speech. Good eye contact. Appropriate affect. Moderate dysphoria present. No signs of psychosis. No SI/HI. Cognitively is intact. Judgment is intact. Moves all limbs. No gait abnormalities. Diagnostics Vital Signs (24Hr): Vital Signs - 24 hr 06/26/24 19:45 06/26/24 20:10 Temperature 97.6 F Pulse Rate 89 Respiratory Rate 16 Blood Pressure 175/90 H 175/80 H Pulse Oximetry 93 Oxygen Delivery Method Room Air BMI result Body Mass Index 26.3 Labs 06/22/24 19:22 06/22/24 19:22 Labs: Laboratory Results - last 48 hr 06/25/24 07:45 Estimat Average Glucose 108 Hemoglobin A1c % 5.4 Magnesium 2.1 Triglycerides 59 Cholesterol 118 LDL Cholesterol, Calc 66 HDL Cholesterol 41 Vitamin B12 606 Folate 11.9 TSH 1.70 Free T4 1.03 Medications Medications Current Medications Acetaminophen (Acetaminophen 325 Mg Tablet) 650 mg PO Q6H PRN PRN Reason: Headache/Pain, Scale 1-10 Al Hydroxide/Mg Hydroxide (Magnesium Hydrox/Alum Hydrox 30 Ml Oral.Susp) 30 ml PO Q6H PRN PRN Reason: Heartburn/Nausea Benzocaine (Throat Lozenge, Medicated Lozenge) 1 lozenge MUCOUS MEM Q2H PRN PRN Reason: Sore Throat Clonidine HCl (Clonidine Hcl 0.1 Mg Tablet) 0.1 mg PO Q4H PRN; Protocol PRN Reason: moderate anxiety Last Admin: 06/26/24 20:10 Dose: 0.1 mg Hydroxyzine HCl (Hydroxyzine Hcl 25 Mg Tablet) 25 mg PO Q6H PRN PRN Reason: mild anxiety Last Admin: 06/24/24 22:42 Dose: 25 mg Magnesium Hydroxide (Milk Of Magnesia 30 Ml Oral.Susp) 30 ml PO DAILY PRN PRN Reason: Constipation Naproxen (Naproxen 250 Mg Tablet) 220 mg PO Q8H PRN PRN Reason: Pain, Mild (Pain Scale 1-3) Nicotine Polacrilex (Nicotine Polacrilex 2 Mg Gum) 4 mg BUCCAL Q2H PRN PRN Reason: Nicotine Cravings Olanzapine (Olanzapine 5 Mg Tablet) 5 mg PO Q4H PRN PRN Reason: agitation Trazodone HCl (Trazodone Hcl 50 Mg Tablet) 50 mg PO BEDTIME MRX1 PRN PRN Reason: Insomnia Venlafaxine HCl (Venlafaxine Hcl Er 37.5 Mg Cap.Er.24h) 37.5 mg PO DAILY DIANN Last Admin: 06/27/24 09:13 Dose: 37.5 mg Allergies Allergies Allergy/AdvReac Type Severity Reaction Status Date / Time amoxicillin Allergy Mild hives Verified 06/22/24 19:05 Penicillins Allergy Mild hives Verified 06/22/24 19:05 Assessment & Plan Assessment & Plan (1) SHAKIRA (generalized anxiety disorder): Status: Acute Code(s): F41.1 - Generalized anxiety disorder (2) MDD (major depressive disorder), recurrent severe, without psychosis: Status: Acute Code(s): F33.2 - Major depressive disorder, recurrent severe without psychotic features (3) PTSD (post-traumatic stress disorder): Status: Acute Code(s): F43.10 - Post-traumatic stress disorder, unspecified Plan Pt is a 29 yo male with hx of excessive worry, depression, PTSD who self presents for worsening anxious symptoms. Patient reports excessive worry since childhood. He says currently came to the hospital because i was sick and in an emotional housing crisis... It destabilized my mind... I was anxious, tired, thinking hard on myself, paranoia in the sense of i don't know how sick i am, wondering if people annoyed with me... or are people not telling me how sick i am... Patient reports that he has been living for the past 2 years in a hotel room with his friend Robby. Last month he started to notice he was more depressed, stopped going to work, irritable, sleeping a lot, low energy and not feeling comfortable around other people including his roommate. Excessively worried about his health, He got upset with his roommate when he smoked in the hotel; they had an angry exchange of words and patient called the police saying he was not sure if this would result in a fight between the 2; patient himself ended up leaving and went to his mother's house but a stepfather did not want him there. In the ED, patient locked himself in a bathroom saying he did not want to get more. sick or get other sick.. And said he worried that his heart had black mold on it and that maybe he need to undergo surgery... Patient now expresses worries that doctors are not telling him how sick he really is however he somewhat responds to reality testing and is open to agrees that he is over thinking situations and misinterpreting them and that these worries are excessive. Patient has never tried medication for his anxiety but is open to it now. Patient denies history of drug or alcohol abuse; used to smoke cannabis daily but has not done so for the past several weeks; denies any history of manic type episodes or behaviors. Denies AVH; endorses history of trauma Formulation/clinical reasoning: Will diagnosed patient with SHAKIRA; also MDD and PTSD. May have ADHD as well. Discussed treatment and risks/side effects of Effexor and patient agrees to try. 06/26/24: Continue current plans and regimen 06/27: Continue current regimen and plans Plan: CV Q 15 minute checks Start Effexor ER 37.5 mg daily; will titrate slowly since patient seems prone to worries about medications Clonidine p.r.n. Will gather collateral Reason for continued inpatient stay Substantial Risk for: med/psych decompensation Time Spent With Patient Time: Total time managing care of this patient today ____ minutes.
[2024-06-27] MEDS: Throat Lozenge, Medicated LOZENGE 1 LOZENGE MUCOUS MEM (10:18)
[2024-06-28 08:00] VITALS: BP 120/72; PULSE 70; RESP 16; TEMP 36.6; O2SAT 99
[2024-06-28] MEDS: Throat Lozenge, Medicated LOZENGE 1 LOZENGE MUCOUS MEM (08:05)
[2024-06-28] MEDS: Venlafaxine HCl ER 37.5 MG CAP.ER.24H PO ×2 (08:05→13:13)
--- NOTE | 2024-06-28 12:14 | HO.PSYCHPN ---
Subjective Subjective Date of Service: 06/28/24 Reason For Visit: depression Interim History: met with patient; discussed with team; reviewed chart pt still struggling with anxiety but feels a little better; discussed misinterpreting others reactions and that it may have to do with history of emotional trauma. Patient talked about history of struggles with communication skills and how he can get hyper focused on the pieces of the puzzle rather than the whole puzzle itself. Feels that Effexor is likely helping and agrees to increasing dose. Diagnostics Vital Signs (24Hr): Vital Signs - 24 hr 06/28/24 08:00 Temperature 97.8 F Pulse Rate 70 Respiratory Rate 16 Blood Pressure 120/72 Pulse Oximetry 99 Oxygen Delivery Method Room Air BMI result Body Mass Index 26.3 Labs 06/22/24 19:22 06/22/24 19:22 Medications Medications Current Medications Acetaminophen (Acetaminophen 325 Mg Tablet) 650 mg PO Q6H PRN PRN Reason: Headache/Pain, Scale 1-10 Al Hydroxide/Mg Hydroxide (Magnesium Hydrox/Alum Hydrox 30 Ml Oral.Susp) 30 ml PO Q6H PRN PRN Reason: Heartburn/Nausea Benzocaine (Throat Lozenge, Medicated Lozenge) 1 lozenge MUCOUS MEM Q2H PRN PRN Reason: Sore Throat Last Admin: 06/28/24 08:05 Dose: 1 lozenge Clonidine HCl (Clonidine Hcl 0.1 Mg Tablet) 0.1 mg PO Q4H PRN; Protocol PRN Reason: moderate anxiety Last Admin: 06/26/24 20:10 Dose: 0.1 mg Hydroxyzine HCl (Hydroxyzine Hcl 25 Mg Tablet) 25 mg PO Q6H PRN PRN Reason: mild anxiety Last Admin: 06/24/24 22:42 Dose: 25 mg Magnesium Hydroxide (Milk Of Magnesia 30 Ml Oral.Susp) 30 ml PO DAILY PRN PRN Reason: Constipation Melatonin (Melatonin 3 Mg Tablet) 3 mg PO BEDTIME DIANN Naproxen (Naproxen 250 Mg Tablet) 220 mg PO Q8H PRN PRN Reason: Pain, Mild (Pain Scale 1-3) Nicotine Polacrilex (Nicotine Polacrilex 2 Mg Gum) 4 mg BUCCAL Q2H PRN PRN Reason: Nicotine Cravings Trazodone HCl (Trazodone Hcl 50 Mg Tablet) 50 mg PO BEDTIME MRX1 PRN PRN Reason: Insomnia Venlafaxine HCl (Venlafaxine Hcl Er 75 Mg Cap.Er.24h) 75 mg PO DAILY DIANN Allergies Allergies Allergy/AdvReac Type Severity Reaction Status Date / Time amoxicillin Allergy Mild hives Verified 06/22/24 19:05 Penicillins Allergy Mild hives Verified 06/22/24 19:05 Assessment & Plan Assessment & Plan (1) SHAKIRA (generalized anxiety disorder): Status: Acute Code(s): F41.1 - Generalized anxiety disorder (2) MDD (major depressive disorder), recurrent severe, without psychosis: Status: Acute Code(s): F33.2 - Major depressive disorder, recurrent severe without psychotic features (3) PTSD (post-traumatic stress disorder): Status: Acute Code(s): F43.10 - Post-traumatic stress disorder, unspecified Plan Pt is a 29 yo male with hx of excessive worry, depression, PTSD who self presents for worsening anxious symptoms. Patient reports excessive worry since childhood. He says currently came to the hospital because i was sick and in an emotional housing crisis... It destabilized my mind... I was anxious, tired, thinking hard on myself, paranoia in the sense of i don't know how sick i am, wondering if people annoyed with me... or are people not telling me how sick i am... Patient reports that he has been living for the past 2 years in a hotel room with his friend Robby. Last month he started to notice he was more depressed, stopped going to work, irritable, sleeping a lot, low energy and not feeling comfortable around other people including his roommate. Excessively worried about his health, He got upset with his roommate when he smoked in the hotel; they had an angry exchange of words and patient called the police saying he was not sure if this would result in a fight between the 2; patient himself ended up leaving and went to his mother's house but a stepfather did not want him there. In the ED, patient locked himself in a bathroom saying he did not want to get more. sick or get other sick.. And said he worried that his heart had black mold on it and that maybe he need to undergo surgery... Patient now expresses worries that doctors are not telling him how sick he really is however he somewhat responds to reality testing and is open to agrees that he is over thinking situations and misinterpreting them and that these worries are excessive. Patient has never tried medication for his anxiety but is open to it now. Patient denies history of drug or alcohol abuse; used to smoke cannabis daily but has not done so for the past several weeks; denies any history of manic type episodes or behaviors. Denies AVH; endorses history of trauma Hospital course/Formulation/clinical reasoning: Will diagnosed patient with SHAKIRA; also MDD and PTSD. May have ADHD as well. Discussed treatment and risks/side effects of Effexor and patient agrees to try. 06/26/24: Continue current plans and regimen 06/27: Continue current regimen and plans 06/28 pt still struggling with anxiety but feels a little better; discussed misinterpreting others reactions and that it may have to do with history of emotional trauma. Patient talked about history of struggles with communication skills and how he can get hyper focused on the pieces of the puzzle rather than the whole puzzle itself. Feels that Effexor is likely helping and agrees to increasing dose. Plan: CV Q 15 minute checks icnrease to Effexor ER 75 mg daily; will titrate slowly since patient seems prone to worries about medications Clonidine p.r.n. Will gather collateral Patient educated on: diagnosis, medication risk/benefits and therapeutic strategies Informed Consent: understands Reason for continued inpatient stay Substantial Risk for: stable for discharge, rapid decompensation and med/psych decompensation Time Spent With Patient Time: Total time managing care of this patient today ____ minutes.
[2024-06-28 20:00] VITALS: BP 138/86; PULSE 93; TEMP 36.9; O2SAT 97
[2024-06-29 08:00] VITALS: BP 132/92; PULSE 70; TEMP 36.6; O2SAT 99
[2024-06-29] MEDS: Venlafaxine HCl ER 75 MG CAP.ER.24H PO (08:48)
--- NOTE | 2024-06-29 16:39 | P.PNPSI_ITS ---
Subjective Subjective Date of Service: 06/29/24 Reason For Visit: depression Interim History: Met with patient; discussed with team Patient reports he feels better and then high anxiety is more under control. Patient says he is more aware of his triggers even during group, he felt slightly uncomfortable he was able to calm himself down and avoid negative thoughts, not dwell on them. Reconciliation Analyst and patient engaged in CBT exercise, looking at automatic thoughts and how they triggered certain feelings; exercise resonated with patient. Discussed dispo planning Mental Status Exam Mental Status Exam Narrative: Pt is alert and oriented; behavior is cooperative, friendly and calm; patient is not in distress; dressed in casual attire, mask; adequate hygiene; mood is described as better and affect congruent; eye contact appropriate; Speech is normal rate, volume and prosody and not pressured; no psychomotor agitation/retardation present; thought process is methodically organized and goal directed; Thought content is on processing his feelings, tx; otherwise pertinent to relevant topics and without any delusional content, paranoid ideations or grandiosity; denies any SI/HI. There is no evidence of perceptual disturbance. Patients insight and judgment are intact. Diagnostics Vital Signs (24Hr): Vital Signs - 24 hr 06/28/24 20:00 06/29/24 08:00 Temperature 98.4 F 97.8 F Pulse Rate 93 70 Blood Pressure 138/86 132/92 H Pulse Oximetry 97 99 Oxygen Delivery Method Room Air Room Air BMI result Body Mass Index 26.3 Labs 06/22/24 19:22 06/22/24 19:22 Medications Medications Current Medications Acetaminophen (Acetaminophen 325 Mg Tablet) 650 mg PO Q6H PRN PRN Reason: Headache/Pain, Scale 1-10 Al Hydroxide/Mg Hydroxide (Magnesium Hydrox/Alum Hydrox 30 Ml Oral.Susp) 30 ml PO Q6H PRN PRN Reason: Heartburn/Nausea Benzocaine (Throat Lozenge, Medicated Lozenge) 1 lozenge MUCOUS MEM Q2H PRN PRN Reason: Sore Throat Last Admin: 06/28/24 08:05 Dose: 1 lozenge Clonidine HCl (Clonidine Hcl 0.1 Mg Tablet) 0.1 mg PO Q4H PRN; Protocol PRN Reason: moderate anxiety Last Admin: 06/26/24 20:10 Dose: 0.1 mg Hydroxyzine HCl (Hydroxyzine Hcl 25 Mg Tablet) 25 mg PO Q6H PRN PRN Reason: mild anxiety Last Admin: 06/24/24 22:42 Dose: 25 mg Magnesium Hydroxide (Milk Of Magnesia 30 Ml Oral.Susp) 30 ml PO DAILY PRN PRN Reason: Constipation Melatonin (Melatonin 3 Mg Tablet) 3 mg PO BEDTIME DIANN Last Admin: 06/29/24 02:18 Dose: Not Given Naproxen (Naproxen 250 Mg Tablet) 220 mg PO Q8H PRN PRN Reason: Pain, Mild (Pain Scale 1-3) Nicotine Polacrilex (Nicotine Polacrilex 2 Mg Gum) 4 mg BUCCAL Q2H PRN PRN Reason: Nicotine Cravings Trazodone HCl (Trazodone Hcl 50 Mg Tablet) 50 mg PO BEDTIME MRX1 PRN PRN Reason: Insomnia Venlafaxine HCl (Venlafaxine Hcl Er 75 Mg Cap.Er.24h) 75 mg PO DAILY [facility] Last Admin: 06/29/24 08:48 Dose: 75 mg Allergies Allergies Allergy/AdvReac Type Severity Reaction Status Date / Time amoxicillin Allergy Mild hives Verified 06/22/24 19:05 Penicillins Allergy Mild hives Verified 06/22/24 19:05 Assessment & Plan Assessment & Plan (1) SHAKRIA (generalized anxiety disorder): Status: Acute Code(s): F41.1 - Generalized anxiety disorder (2) MDD (major depressive disorder), recurrent severe, without psychosis: Status: Acute Code(s): F33.2 - Major depressive disorder, recurrent severe without psychotic features (3) PTSD (post-traumatic stress disorder): Status: Acute Code(s): F43.10 - Post-traumatic stress disorder, unspecified Plan Pt is a 29 yo male with hx of excessive worry, depression, PTSD who self presents for worsening anxious symptoms. Patient reports excessive worry since childhood. He says currently came to the hospital because i was sick and in an emotional housing crisis... It destabilized my mind... I was anxious, tired, thinking hard on myself, paranoia in the sense of i don't know how sick i am, wondering if people annoyed with me... or are people not telling me how sick i am... Patient reports that he has been living for the past 2 years in a hotel room with his friend Robby. Last month he started to notice he was more depressed, stopped going to work, irritable, sleeping a lot, low energy and not feeling comfortable around other people including his roommate. Excessively worried about his health, He got upset with his roommate when he smoked in the hotel; they had an angry exchange of words and patient called the police saying he was not sure if this would result in a fight between the 2; patient himself ended up leaving and went to his mother's house but a stepfather did not want him there. In the ED, patient locked himself in a bathroom saying he did not want to get more. sick or get other sick.. And said he worried that his heart had black mold on it and that maybe he need to undergo surgery... Patient now expresses worries that doctors are not telling him how sick he really is however he somewhat responds to reality testing and is open to agrees that he is over thinking situations and misinterpreting them and that these worries are excessive. Patient has never tried medication for his anxiety but is open to it now. Patient denies history of drug or alcohol abuse; used to smoke cannabis daily but has not done so for the past several weeks; denies any history of manic type episodes or behaviors. Denies AVH; endorses history of trauma Hospital course/Formulation/clinical reasoning: Will diagnosed patient with SHAKIRA; also MDD and PTSD. May have ADHD as well. Discussed treatment and risks/side effects of Effexor and patient agrees to try. 06/26/24: Continue current plans and regimen 06/27: Continue current regimen and plans 06/28 pt still struggling with anxiety but feels a little better; discussed misinterpreting others reactions and that it may have to do with history of emotional trauma. Patient talked about history of struggles with communication skills and how he can get hyper focused on the pieces of the puzzle rather than the whole puzzle itself. Feels that Effexor is likely helping and agrees to increasing dose. 06/29 Patient reports he feels better and then high anxiety is more under control. Patient says he is more aware of his triggers even during group, he felt slightly uncomfortable he was able to calm himself down and avoid negative thoughts, not dwell on them. Reconciliation Analyst and patient engaged in CBT exercise, looking at automatic thoughts and how they triggered certain feelings; exercise resonated with patient. Discussed dispo planning Plan: CV Q 15 minute checks icnreased to Effexor ER 75 mg daily; will titrate slowly since patient seems prone to worries about medications Clonidine p.r.n. Patient educated on: diagnosis, medication risk/benefits and therapeutic strategies Informed Consent: understands Reason for continued inpatient stay Substantial Risk for: stable for discharge Time Spent With Patient Time: Total time managing care of this patient today ____ minutes.
[2024-06-29 20:00] VITALS: BP 129/87; PULSE 82; TEMP 36.9; O2SAT 97
[2024-06-30 08:00] VITALS: BP 122/79; PULSE 74; RESP 16; TEMP 36.6; O2SAT 97
[2024-06-30] MEDS: Venlafaxine HCl ER 75 MG CAP.ER.24H PO (08:18)
--- NOTE | 2024-06-30 13:02 | HO.PSYCHPN ---
Subjective Subjective Date of Service: 06/30/24 Reason For Visit: depression Interim History: met with patient; discussed with team Patient reports he is doing well and then anxiety remains much lower and easy to cope with. Patient feels that he is ready to go and continue treatment as an outpatient. Patient still does not know where he is going to live but feels confident that he will be able to figure it out and says I have resources. He remains in good behavioral and impulse control, appropriate with peers and staff and engaged in treatment Mental Status Exam Mental Status Exam Narrative: Pt is alert and oriented; behavior is cooperative, friendly and calm; patient is not in distress; dressed in casual attire, scruffy facial hair; adequate hygiene; mood is described as good and affect congruent; eye contact appropriate; Speech is normal rate, volume and prosody and not pressured; no psychomotor agitation/retardation present; thought process is methodically organized and goal directed; Thought content is on processing his feelings, tx; otherwise pertinent to relevant topics and without any delusional content, paranoid ideations or grandiosity; denies any SI/HI. There is no evidence of perceptual disturbance. Patients insight and judgment fair Diagnostics Vital Signs (24Hr): Vital Signs - 24 hr 06/29/24 20:00 06/30/24 08:00 Temperature 98.5 F 98 F Pulse Rate 82 74 Respiratory Rate 16 Blood Pressure 129/87 122/79 Pulse Oximetry 97 97 Oxygen Delivery Method Room Air Room Air BMI result Body Mass Index 26.3 Labs 06/22/24 19:22 06/22/24 19:22 Medications Medications Current Medications Acetaminophen (Acetaminophen 325 Mg Tablet) 650 mg PO Q6H PRN PRN Reason: Headache/Pain, Scale 1-10 Al Hydroxide/Mg Hydroxide (Magnesium Hydrox/Alum Hydrox 30 Ml Oral.Susp) 30 ml PO Q6H PRN PRN Reason: Heartburn/Nausea Benzocaine (Throat Lozenge, Medicated Lozenge) 1 lozenge MUCOUS MEM Q2H PRN PRN Reason: Sore Throat Last Admin: 06/28/24 08:05 Dose: 1 lozenge Clonidine HCl (Clonidine Hcl 0.1 Mg Tablet) 0.1 mg PO Q4H PRN; Protocol PRN Reason: moderate anxiety Last Admin: 06/26/24 20:10 Dose: 0.1 mg Hydroxyzine HCl (Hydroxyzine Hcl 25 Mg Tablet) 25 mg PO Q6H PRN PRN Reason: mild anxiety Last Admin: 06/24/24 22:42 Dose: 25 mg Magnesium Hydroxide (Milk Of Magnesia 30 Ml Oral.Susp) 30 ml PO DAILY PRN PRN Reason: Constipation Melatonin (Melatonin 3 Mg Tablet) 3 mg PO BEDTIME DIANN Last Admin: 06/29/24 21:30 Dose: Not Given Naproxen (Naproxen 250 Mg Tablet) 220 mg PO Q8H PRN PRN Reason: Pain, Mild (Pain Scale 1-3) Nicotine Polacrilex (Nicotine Polacrilex 2 Mg Gum) 4 mg BUCCAL Q2H PRN PRN Reason: Nicotine Cravings Trazodone HCl (Trazodone Hcl 50 Mg Tablet) 50 mg PO BEDTIME MRX1 PRN PRN Reason: Insomnia Venlafaxine HCl (Venlafaxine Hcl Er 75 Mg Cap.Er.24h) 75 mg PO DAILY [facility] Last Admin: 06/30/24 08:18 Dose: 75 mg Allergies Allergies Allergy/AdvReac Type Severity Reaction Status Date / Time amoxicillin Allergy Mild hives Verified 06/22/24 19:05 Penicillins Allergy Mild hives Verified 06/22/24 19:05 Assessment & Plan Assessment & Plan (1) SHAKIRA (generalized anxiety disorder): Status: Acute Code(s): F41.1 - Generalized anxiety disorder (2) MDD (major depressive disorder), recurrent severe, without psychosis: Status: Acute Code(s): F33.2 - Major depressive disorder, recurrent severe without psychotic features (3) PTSD (post-traumatic stress disorder): Status: Acute Code(s): F43.10 - Post-traumatic stress disorder, unspecified Plan Pt is a 29 yo male with hx of excessive worry, depression, PTSD who self presents for worsening anxious symptoms. Patient reports excessive worry since childhood. He says currently came to the hospital because i was sick and in an emotional housing crisis... It destabilized my mind... I was anxious, tired, thinking hard on myself, paranoia in the sense of i don't know how sick i am, wondering if people annoyed with me... or are people not telling me how sick i am... Patient reports that he has been living for the past 2 years in a hotel room with his friend Robby. Last month he started to notice he was more depressed, stopped going to work, irritable, sleeping a lot, low energy and not feeling comfortable around other people including his roommate. Excessively worried about his health, He got upset with his roommate when he smoked in the hotel; they had an angry exchange of words and patient called the police saying he was not sure if this would result in a fight between the 2; patient himself ended up leaving and went to his mother's house but a stepfather did not want him there. In the ED, patient locked himself in a bathroom saying he did not want to get more. sick or get other sick.. And said he worried that his heart had black mold on it and that maybe he need to undergo surgery... Patient now expresses worries that doctors are not telling him how sick he really is however he somewhat responds to reality testing and is open to agrees that he is over thinking situations and misinterpreting them and that these worries are excessive. Patient has never tried medication for his anxiety but is open to it now. Patient denies history of drug or alcohol abuse; used to smoke cannabis daily but has not done so for the past several weeks; denies any history of manic type episodes or behaviors. Denies AVH; endorses history of trauma Hospital course/Formulation/clinical reasoning: Will diagnosed patient with SHAKIRA; also MDD and PTSD. May have ADHD as well. Discussed treatment and risks/side effects of Effexor and patient agrees to try. 06/26/24: Continue current plans and regimen 06/27: Continue current regimen and plans 06/28 pt still struggling with anxiety but feels a little better; discussed misinterpreting others reactions and that it may have to do with history of emotional trauma. Patient talked about history of struggles with communication skills and how he can get hyper focused on the pieces of the puzzle rather than the whole puzzle itself. Feels that Effexor is likely helping and agrees to increasing dose. 06/29 Patient reports he feels better and then high anxiety is more under control. Patient says he is more aware of his triggers even during group, he felt slightly uncomfortable he was able to calm himself down and avoid negative thoughts, not dwell on them. Title Curative Specialist and patient engaged in CBT exercise, looking at automatic thoughts and how they triggered certain feelings; exercise resonated with patient. Discussed dispo planning 06/30 Patient reports he is doing well and then anxiety remains much lower and easy to cope with. Patient feels that he is ready to go and continue treatment as an outpatient. Patient still does not know where he is going to live but feels confident that he will be able to figure it out and says I have resources. He remains in good behavioral and impulse control, appropriate with peers and staff and engaged in treatment Patient is not in imminent risk for harm to self or others and appropriate to return to the community for treatment; request for discharge honored Plan: CV Q 15 minute checks Continue Effexor ER 75 mg daily; will titrate slowly since patient seems prone to worries about medications Clonidine p.r.n. Patient educated on: diagnosis and medication risk/benefits Informed Consent: understands Reason for continued inpatient stay Substantial Risk for: stable for discharge Time Spent With Patient Time: Total time managing care of this patient today ____ minutes.
--- NOTE | 2024-06-30 17:10 | PM.PSYDC ---
DS: Providers Provider Date of Service: 07/01/24 Date of admission: 06/24/24 12:49 Date of discharge: 07/01/24 Primary care physician: Lesley Physician Attending physician on admission: Shiva Roca Attending physician on discharge: Shiva Roca DS: Diagnosis Discharge Diagnosis (1) SHAKIRA (generalized anxiety disorder): Status: Acute (2) MDD (major depressive disorder), recurrent severe, without psychosis: Status: Acute (3) PTSD (post-traumatic stress disorder): Status: Acute DS: Medications Discharge Medications Home Medications: Home Medications ?Medication ?Instructions ?Recorded ?Confirmed naproxen sodium 220 mg tablet 220 mg PO Q8H PRN Pain 06/23/24 06/23/24 Previous Rx's ?Medication ?Instructions ?Recorded venlafaxine 75 mg capsule,extended 75 mg PO DAILY 30 days #30 caps 06/30/24 release 24 hr Mental Status Exam Mental Status Exam Narrative: Pt is alert and oriented; behavior is cooperative, friendly and calm; patient is not in distress; dressed in casual attire, scruffy facial hair; adequate hygiene; mood is described as good and affect congruent; eye contact appropriate; Speech is normal rate, volume and prosody and not pressured; no psychomotor agitation/retardation present; thought process is methodically organized and goal directed; Thought content is on aftercare plans; otherwise pertinent to relevant topics and without any delusional content, paranoid ideations or grandiosity; denies any SI/HI. No AVH. There is no evidence of perceptual disturbance. Patients insight and judgment fair Data Data Completed and Pending Completed studies during hospitalization [Text1]: 06/24/24 06/25/24 02:43 07:45 POC Glucose 112 Estimat Average Glucose 108 Hemoglobin A1c % 5.4 Magnesium 2.1 Triglycerides 59 Cholesterol 118 LDL Cholesterol, Calc 66 HDL Cholesterol 41 Vitamin B12 606 Folate 11.9 TSH 1.70 Free T4 1.03 DS: Summary Hospital Course Hospital Course: Pt is a 29 yo male with hx of excessive worry, depression, PTSD who self presents for worsening anxious symptoms. Patient reports excessive worry since childhood. He says currently came to the hospital because i was sick and in an emotional housing crisis... It destabilized my mind... I was anxious, tired, thinking hard on myself, paranoia in the sense of i don't know how sick i am, wondering if people annoyed with me... or are people not telling me how sick i am... Patient reports that he has been living for the past 2 years in a hotel room with his friend Robby. Last month he started to notice he was more depressed, stopped going to work, irritable, sleeping a lot, low energy and not feeling comfortable around other people including his roommate. Excessively worried about his health, He got upset with his roommate when he smoked in the hotel; they had an angry exchange of words and patient called the police saying he was not sure if this would result in a fight between the 2; patient himself ended up leaving and went to his mother's house but a stepfather did not want him there. In the ED, patient locked himself in a bathroom saying he did not want to get more. sick or get other sick.. And said he worried that his heart had black mold on it and that maybe he need to undergo surgery... Patient now expresses worries that doctors are not telling him how sick he really is however he somewhat responds to reality testing and is open to agrees that he is over thinking situations and misinterpreting them and that these worries are excessive. Patient has never tried medication for his anxiety but is open to it now. Patient denies history of drug or alcohol abuse; used to smoke cannabis daily but has not done so for the past several weeks; denies any history of manic type episodes or behaviors. Denies AVH; endorses history of trauma Hospital course/Formulation/clinical reasoning: On admission, patient anxious to the point of somatic delusional thinking however patient responds well to reality testing. Some depression as well but no SI at all. No history of medication trials other than Ritalin as a child. Patient diagnosed with SHAKIRA; also MDD and PTSD. May have ADHD as well. Patient has a very formal and methodological way of talking and processing information; he talked about h struggling with communication skills and how he gets hyper-focused on the pieces of the puzzle rather than the whole puzzle itself; autism/Asperger's was discussed but not diagnosed. He agrees with diagnosis of GED, MDD and PTSD and perhaps ADHD and after discussing risks/side effects of Effexor patient agreed to try. Patient tolerated medication. As medication was titrated and with therapeutic sessions, patient felt his anxiety lessening overall and much more able to deal with moments when he felt triggered. Patient responded well to CBT exercise became much more aware of misinterpreting other people's reactions; he was also able to make the connection between these chronic misinterpretations and his own history of emotional trauma. Patient remained in good behavioral and impulse control throughout his time in the unit; he was appropriate with peers and staff and engaged in treatment, going to groups and open in 1 on 1 sessions. Patient continued to feel that his anxiety was significantly less and he was pleased with treatment. He was eager to engage with outpatient therapist. Patient felt that he was ready to discharge, wanting to get back to work. It was not sure exactly where he is going to stay but let team know that he had resources. He plan was to get back to work as soon as possible. Patient was at baseline or better. Patient was not in imminent risk for harm to self or others and appropriate to return to the community for treatment. Request for discharge honored. Meds: Effexor ER 75 mg daily Time spent discussing smoking cessation with patient: 3 to 10 minutes Status at Discharge Functional status at discharge: independent ambulation Overall status at discharge: patient is back to baseline Time Spent with Patient Time attestation: Total time managing care of this patient today 40____ minutes. Time spent: Greater than 30 minutes Specific discharge activities: Met with patient; discussed with team; charting; prescription Discharge Plan Discharge Anticipated Discharge Date/Time: 07/01/24 23:30 Patient Disposition: Home, Self-Care Discharge Diagnosis: SHAKIRA Referrals: [facility]: Marcie Vegas (therapy) [Other] - 07/05/24 1:00 pm (Initial diagnostic evaluation for therapy Appointment is in person at [facility] ) [facility]: Soco Fisher (psychiatry) [Other] - 07/29/24 8:00 am (Initial psychiatric evaluation for medication management Appointment is by tele-health. Please check your email for a link to the appointment ) [facility]: Soco Fisher (psychiatry) [Other] - 08/25/24 8:15 am (follow-up medication management appointment Appointment is by tele-health. Check your email for a link to the appointment. ) Physician,None [Primary Care Provider] - 1 Week Discharge Medications: New venlafaxine 75 mg Capsule,Extended Release 24hr 75 mg PO DAILY 30 Days Qty: 30 1RF Continued naproxen sodium 220 mg Tablet 220 mg PO Q8H PRN (Reason: Pain) Discharge Orders: Discharge Order (Routine); Ordered 07/01/24 Ordered By: Shiva Roca Diet: Regular diet Activity on Discharge: As tolerated Stand Alone Forms: Patient Portal Discharge page, Community Support Print Language: [place] Care Plan Goals: Maintain mood and safe behaviors Take medications as prescribed Practice coping skills Continue with outpatient providers and reach out to them as needed Health Concerns: Mood stability and behaviors Plan of Treatment: Follow up with your PCP, psychiatric provider and other outpatient providers regarding above concerns Take medications as prescribed Assessment: Risk assessment at time of discharge:? Patient was interviewed prior to discharge and found to be fully oriented and without any SI or HI. Patient has improved insight and judgment and wants to continue treatment. Patient is not in imminent risk of harm to self or others and has a safety plan that includes presenting to the closest ER or calling 911 if feeling unsafe.? Patient has been observed closely by nursing and unit staff throughout admission; patient has not engaged in any behaviors that suggest dangerousness to self or others and has demonstrated appropriate behaviors and impulse control Patient Instructions: Influenza (ED)
[2024-06-30 19:49] VITALS: BP 114/71; PULSE 90; RESP 16; TEMP 36.4; O2SAT 98
[2024-07-01 08:40] VITALS: BP 129/83; PULSE 88; TEMP 37.1; O2SAT 98
[2024-07-01] MEDS: Venlafaxine HCl ER 75 MG CAP.ER.24H PO (08:47)
== END 2024-07-01 10:33 | disposition home or self-care (01) | DRG 756 ==
LOC: HO.ED 06-23 07:50 → HO.PM5 06-24 13:02
PROVIDERS: Nurse Practitioner Family; Physician Assistant Medical; Admitting Provider Clinical Nurse Specialist Psychiatric/Mental Health, Adult; Emergency Provider Emergency Medicine Emergency Medical Services; Visit Provider Psychiatry & Neurology Psychiatry
DX: F41.1 Generalized anxiety disorder (principal); F33.2 Major depressive disorder, recurrent severe without psychotic features; F43.10 Post-traumatic stress disorder, unspecified; Z59.01 Sheltered homelessness; Z87.891 Personal history of nicotine dependence
CPT/HCPCS: 0241U; 36415; 71046; 80048; 80061; 80076; 80143; 80179; 80307; 82607; 82746; 82947; 83036; 83735; 84439; 84443; 84484; 85025; 93005; 99285; S9485

== ENCOUNTER → 2024-06-22 19:06 | Outpatient (BNV) | payer MEDICAID, SELFPAY | PROVIDERS: Emergency Provider Emergency Medicine Emergency Medical Services; Visit Provider Internal Medicine Cardiovascular Disease | DX: R07.9 Chest pain, unspecified (principal) | CPT/HCPCS: 93010 ==

== ENCOUNTER → 2024-06-22 19:06 | Outpatient (BNV) | payer SELFPAY | PROVIDERS: Visit Provider Student in an Organized Health Care Education/Training Program | DX: R07.9 Chest pain, unspecified (principal); R06.02 Shortness of breath | CPT/HCPCS: 71046 ==

== ENCOUNTER → 2024-06-24 12:49 | Outpatient (BNV) | payer OTHER, SELFPAY | PROVIDERS: Admitting Provider Clinical Nurse Specialist Psychiatric/Mental Health, Adult; Emergency Provider Emergency Medicine Emergency Medical Services; Visit Provider Psychiatry & Neurology Psychiatry | DX: F33.2 Major depressive disorder, recurrent severe without psychotic features (principal); F41.1 Generalized anxiety disorder; F43.11 Post-traumatic stress disorder, acute | CPT/HCPCS: 90792 ==